=== PATIENT | male | born 1940 | race African-American/Black ===

== ENCOUNTER 2022-11-15 11:28 | Emergency (ER) | payer OTHER ==
[~2022-11-15] VITALS: Ht 175.3 cm; Wt 95.9 kg
[2022-11-15 13:23] LABS: Basophils # (auto) 0.1 10 ^3/uL (0-0.2); Eosinophils # (auto) 0 10 ^3/uL (0-0.8); Eosinophils % (auto) 0.3 % (0.0-7.0); Hematocrit 38.3 % (41.0-53.0); Hemoglobin 12.8 g/dL (13.5-17.5); Lymphocytes # (auto) 2.2 10 ^3/uL (0.4-5.4); Mean Corpuscular Hgb Conc. 33.5 g/dL (32.0-36.0); Mean Corpuscular Volume 83.4 fL (80.0-100.0); Monocytes # (auto) 0.9 10 ^3/uL (0-1.3); Neutrophils # (auto) 7.1 10 ^3/uL (1.6-8.6); Neutrophils % (auto) 68.7 % (37.0-80.0); Nucleated Red Blood Cells % 0.1 %; Red Blood Cells 4.59 10^6/uL (4.5-5.90); Red Cell Distribution Width 14.2 % (11.8-14.3); White Blood Cell 10.4 10^3/uL (4.4-10.8)
[2022-11-15 13:41] LABS: Albumin 3.2 g/dL (3.4-5.0); BUN/Creatinine Ratio 11.7; Calcium 9.4 mg/dL (8.5-10.1); Potassium 3.6 mmol/L (3.5-5.1)
[2022-11-15 13:57] LABS: Bilirubin, Total 0.6 mg/dL (0.2-1.0); Total Protein 6.8 g/dL (6.4-8.2)
[2022-11-15 17:27] LABS: Urine Bacteria FEW /hpf (None Seen); Urine Blood 2+ /uL (Negative); Urine Mucus FEW (None Seen); Urine Specific Gravity 1.028 (1.001-1.035); Urine WBC 9 /hpf (0 - 3)
[2022-11-15 20:35] VITALS: BP 157/60
== END 2022-11-15 20:38 | disposition home or self-care (01) ==
LOC: ER 11:28
DX: R10.84 Generalized abdominal pain (principal); I10 Essential (primary) hypertension
CPT/HCPCS: 36415; 74176; 80053; 81001; 83690; 84484; 85025; 93005

== ENCOUNTER 2024-09-18 03:52 | Inpatient (IN) | payer OTHER ==
[2024-09-18] VITALS (7 sets, daily range): BP systolic 153–160; BP diastolic 81–99; PULSE 60–114; RESP 17–20; TEMP 98.2–99.5; O2SAT 92–99
[~2024-09-18] VITALS: Ht 175.3 cm; Wt 102.2 kg
--- NOTE | 2024-09-18 04:12 | ED.PDOC ---
SOB-HPI HPI Comments 83-year-old Male who came to ER via EMS for shortness of breath. Patient does have history of hypertension, dyslipidemia, prostate cancer, and stage IV lung cancer. Was discharged yesterday at [facility], where he got admitted and intubated for several days. 45 minutes prior to arrival, patient was asleep when he woke up due to sudden onset shortness of breath. He was saturating 87% on room air on scene, was given breathing treatment and oxygen and it improved tonight 99%. Noted to be hypertensive at 182/98 mm Hg. Chief Complaint: Shortness of Breath Time Seen by MD: 04:11 Primary Care Provider: AMALIA Reviewed notes: Traffic Analyst Notes Information Source: Emergency Med Personnel Mode of Arrival: EMS Severity: Moderate Timing: Minutes Duration: Since onset Context: At Rest, With Light Exertion PE Risk Factors: None History of: Other (Lung cancer) Prehospital treatment: Breathing Tx, Oxygen Associated Signs and Symptoms: Wheeze, Cough If cough with SOB: Non-Productive Past Medical History PAST MEDICAL HISTORY: Cancer, GERD, High Lipids, HTN Past Medical History (Other): Lung cancer, prostate cancer Family History Family History: Reviewed,noncontributory to illness Social History Smoker: Non-Smoker Alcohol: Denies ETOH Use Drugs: Denies Drug Use Lives In: Home Constitutional: denies: chills, diaphoresis, fatigue, fever, malaise, sweats, weakness, others EENTM: denies: blurred vision, double vision, ear bleeding, ear discharge, ear drainage, ear pain, ear ringing, eye pain, eye redness, hearing loss, mouth pain, mouth swelling, nasal discharge, nose bleeding, nose congestion, nose pain, photophobia, tearing, throat pain, throat swelling, voice changes, others Respiratory: reports: SOB at rest, shortness of breath, wheezing; denies: cough, hemoptysis, orthopnea, SOB with excertion, stridor, others Cardiovascular: denies: chest pain, dizzy spells, diaphoresis, Dyspnea on exertion, edema, irregular heart beat, left arm pain, lightheadedness, palpitations, PND, syncope, others Gastrointestinal: denies: abdomen distended, abdominal pain, blood streaked bowels, constipated, diarrhea, dysphagia, difficulty swallowing, hematemesis, melena, nausea, poor appetite, poor fluid intake, rectal bleeding, rectal pain, vomiting, others Genitourinary: denies: burning, dysuria, flank pain, frequency, hematuria, incontinence, penile discharge, penile sore, pain, testicle pain, testicle swelling, urgency, others Neurological: denies: dizziness, fainting, headache, left sided numbness, left sided weakness, numbness, paresthesia, pre-existing deficit, right sided numbness, right sided weakness, seizure, speech problems, tingling, tremors, weakness, others Musculoskeletal: denies: back pain, gout, joint pain, joint swelling, muscle pain, muscle stiffness, neck pain, others Integumetry: denies: bruises, change in color, change in hair/nails, dryness, laceration, lesions, lumps, rash, wounds, others Allergic/Immunocompromised: denies: Difficulty Healing, Frequent Infections, Hives, Itching, others Hematologic/Lymphatic: denies: anemia, blood clots, easy bleeding, easy bruising, swollen glands, others Endocrine: denies: excessive hunger, excessive sweating, excessive thirst, excessive urination, flushing, intolerance to cold, intolerance to heat, un explained weight gain, unexplained weight loss, others Psychiatric: denies: anxiety, bipolar disorder, depression, hopeless, panic disorder, schizophrenia, sleepless, suicidal, others Physical Exam General Appearance: No Apparent Distress, Normal HEENT: Normal ENT Inspection, Pharynx Normal, TMs Normal Neck: Full Range of Motion, Non-Tender, Normal, Normal Inspection Respiratory: Chest Non-Tender, Lungs Clear, No Accessory Muscle Use, No Respiratory Distress, Normal Breath Sounds Cardiovascular: No Edema, No JVD, No Murmur, No Gallop, Normal Peripheral Pulses, Regular Rate/Rhythm Breast Exam: Deferred Gastrointestinal: No Organomegaly, Non Tender, No Pulsatile Mass, Normal Bowel Sounds, Soft Genitalia: Deferred Pelvic: Deferred Rectal: Deferred Extremities: No calf tenderness, Normal capillary refill, Normal inspection, Normal range of motion, Non-tender, No pedal edema Musculoskeletal : Apperance: Normal Neurologic: Alert, special events manager II-XII nml as Tested, No Motor Deficits, Normal Affect, Normal Mood, No Sensory Deficits Cerebellar Function: Normal Reflexes: Normal Skin: Dry, Normal Color, Warm Lymphatic: No Adenopathy EKG EKG : Pulse Rate (adult): 111 Comments sinus tachycardia, repolarization abnormality, prolonged QT Was a procedure done? Was a procedure done?: No Differential Dx Differential Diagnosis: Asthma, Bronchitis, CHF, COPD, Myocardial infarction, P neumonia, Respiratory Distress, Other (Lung cancer) X-Ray, Labs, Meds, VS Vital Signs Date Time Temp Pulse Resp B/P (MAP) Pulse Ox O2 Delivery O2 Flow Rate FiO2 09/18/24 04:33 26 98 Nasal Cannula* 6 44 09/18/24 04:33 111 09/18/24 03:57 98.2 110 28 182/98 (126) 96 09/18/24 03:56 111 Lab Test 09/18/24 04:29 Range/Units Blood Gas Specimen Type Arterial Blood Gas Sample Site Right radial Blood Gas Patient Temperature 37.0 Arterial Blood Date Drawn [id number] Arterial Blood pH 7.465 H 7.350-7.450 Arterial Blood Partial Pressure CO2 34.1 L 35.0-48.0 mmHg Arterial Blood Partial Pressure O2 88.3 83.0-108.0 mmHg Arterial Blood HCO3 24.0 21.0-28.0 mmol/L Arterial Blood Oxygen Saturation 97.3 94.0-98.0 % Arterial Blood Base Excess 0.7 -2.0-3.0 mmol/L Arterial Blood Oxyhemoglobin 96.0 94.0-98.0 % Arterial Blood Carboxyhemoglobin 0.7 0.5-1.5 % Arterial Blood Methemoglobin 0.6 0.0-1.5 % Jeison Test Yes Blood Gas Total Hemoglobin 12.10 L 13.5-17.5 g/dL Blood Gas Liter Flow 6.00 Blood Gas Modality Nasal cannula FiO2 % 44.0 Current Medications Medications (Trade) Dose Ordered Sig/Nando Route Start Time Stop Time Status Last Admin Methylprednisolone Sodium Succinate (Solu Medrol) 125 mg ONCE ONCE IV 09/18/24 04:15 09/18/24 04:16 DC 09/18/24 04:33 Albuterol (Ventolin Medneb) 5 mg ONCE ONCE N 09/18/24 04:15 09/18/24 04:16 DC 09/18/24 04:35 Ipratropium [place] (Atrovent Medneb) 1 mg ONCE ONCE N 09/18/24 04:15 09/18/24 04:16 DC 09/18/24 04:35 Time of 1ST Reevaluation: 04:06 Reevaluation 1ST: Unchanged Consultation: Other (I contacted [place] [facility] Conrad reviewed the case plan to a rrange transfer to [place]. Auth # [id number]) Patient Education/Counseling: Diagnosis, Treatment Family Education/Counseling: No Family Present Sepsis focused exam: focus exam completed, time: (0500) Departure 1 Departure Time of Disposition: 05:22 Impression: Primary Impression: COPD with acute exacerbation Additional Impression: Respiratory failure with hypoxia Disposition: [facility] Condition: Guarded (I contacted [place] Dr Conrad reviewed the case plan to arrange transfer to [place]. Auth # [id number]) Critical Care Note Critical Care Time?: Yes (35 min-critical care time only) Stability Stability form required: No Heart Score Heart Score: Heart Score Response (Comments) Value History Moderate Suspicious 1 EKG Repolarization Disturb 1 Age >65 2 Risk Factors >3 or Hx ASHD 2 Troponin Normal limit 0 Total 6 I personally scribed for JIMENA PAYTON MD ([email or web address]) on 09/18/24 at 04:12. Electronically submitted by Deuce Hernandez ([email or web address]). JIMENA PAYTON MD Sep 18, 2024 04:12
[2024-09-18] MEDS: methylPREDNISolone SOD SUCC 125 MG/2 ML VL IV ONE (04:33)
[2024-09-18] MEDS: ALBUTEROL SULF 2.5 MG/0.5ML(0.5%) NEB SOLN HHN ONE (04:35)
[2024-09-18] MEDS: IPRATROPIUM BROM 0.5 MG/2.5ML INH SOL HHN ONE (04:35)
[2024-09-18 04:40] LABS: Base Excess 0.7 mmol/L (-2.0-3.0)
--- NOTE | 2024-09-18 04:42 | DVH ---
CHEST RADIOGRAPH Indication: SOB Technique: Single frontal view of the chest was obtained Comparison: None IMPRESSION: The cardiomediastinal silhouette is prominent. There are small bilateral pleural effusions, right gr eater than left. Bibasilar patchy airspace opacities, right greater than left. Moderate pulmonary va scular congestion. No evidence of pneumothorax.
[2024-09-18 06:14] LABS: Basophils # (auto) 0.1 10 ^3/uL (0-0.2); Basophils % (auto) 0.7 % (0.0-2.0); Eosinophils # (auto) 0.1 10 ^3/uL (0-0.8); Eosinophils % (auto) 0.9 % (0.0-7.0); Hematocrit 36.5 % (41.0-53.0); Hemoglobin 12.1 g/dL (13.5-17.5); Lymphocytes # (auto) 1.8 10 ^3/uL (0.4-5.4); Mean Corpuscular Hemoglobin 30.7 pg (28.0-32.0); Mean Corpuscular Hgb Conc. 33.2 g/dL (32.0-36.0); Mean Corpuscular Volume 92.7 fL (80.0-100.0); Monocytes # (auto) 0.6 10 ^3/uL (0-1.3); Monocytes % (auto) 6.1 % (0.0-12.0); Neutrophils # (auto) 7.2 10 ^3/uL (1.6-8.6); Neutrophils % (auto) 74.3 % (37.0-80.0); Nucleated Red Blood Cells % 0.1 %; Platelet Count (auto) 244 10^3/uL (140-450); Red Blood Cells 3.94 10^6/uL (4.5-5.90); Red Cell Distribution Width 16.2 % (11.8-14.3); White Blood Cell 9.8 10^3/uL (4.4-10.8)
[2024-09-18 06:22] LABS: Alanine Aminotransferase 11 U/L (7-40); Alkaline Phosphatase 88 U/L (46-116); Anion Gap 10 (5-15); Aspartate Aminotransferase 30 U/L (13-40); BUN/Creatinine Ratio 10.9 (10.0-20.0); Blood Urea Nitrogen 17 mg/dL (9-23); Calcium 9.2 mg/dL (8.7-10.4); Carbon Dioxide 24 mmol/L (20-31); Chloride 113 mmol/L (98-107); Glucose 129 mg/dL (74-106); Potassium 3.3 mmol/L (3.5-5.1); Sodium 147 mmol/L (136-145)
[2024-09-18 06:23] LABS: Bilirubin, Total 0.5 mg/dL (0.2-1.0); Total Protein 5.3 g/dL (5.7-8.2)
--- NOTE | 2024-09-18 06:46 | ECG ---
[facility] Test Date: 2024-09-18 Test Time: 03:56:46 Pat Name: AVE SANCHEZ Department: ED Room: 0202T Gender: M Sales Promotion Coordinator: ED : 1940 Requested By: JIMENA PAYTON Order Number: [id number] Reading MD: Preet Hernandez Measurements Intervals [place] Rate: 111 P: 47 HI: 123 QRS: 23 QRSD: 109 T: 193 QT: 376 QTc: 511 Interpretive Statements Sinus tachycardia with irregular rate Probable anteroseptal infarct, old Nonspecific repol abnormality, lateral leads Prolonged QT interval Electronically Signed On 09-21-2024 8:20:06 PST by Preet Hernandez Please click the below link to view image of tracing.
--- NOTE | 2024-09-18 07:06 | ED.PDOC ---
SOB-HPI Chief Complaint: Shortness of Breath Time Seen by MD: 06:57 Primary Care Provider: Zachary López notes: Nurses Notes, Medications, Allergies Information Source: Patient, Relative, DrAshlie Office ([facility] physician) Mode of Arrival: EMS Severity: Severe Timing: Days Duration: Since onset Context: Spontaneous Onset History of: COPD Prehospital treatment: Beta-Agonist Tx, Breathing Tx, Oxygen Modifying Factors: Exertion Associated Signs and Symptoms: Wheeze, Cough If cough with SOB: Non-Productive Past Medical History PAST MEDICAL HISTORY: Cancer, GERD, High Lipids, HTN Past Medical History (Other): Lung cancer, prostate cancer Family History Family History: Reviewed,noncontributory to illness Social History Smoker: Non-Smoker Alcohol: Denies ETOH Use Drugs: Denies Drug Use Lives In: Home Respiratory: reports: cough, SOB at rest Physical Exam General Appearance: No Apparent Distress, Normal HEENT: Normal ENT Inspection, Pharynx Normal, TMs Normal Neck: Full Range of Motion, Non-Tender, Normal, Normal Inspection Respiratory: Chest Non-Tender, Lungs Clear, No Accessory Muscle Use, No Respiratory Distress, Normal Breath Sounds, Other (pt reports to feel bewtter but still speaking in clipped short sentences and on 6LO2 with tachycardia varying from 104-119) Cardiovascular: No Edema, No JVD, No Murmur, No Gallop, Normal Peripheral Pulses, Regular Rate/Rhythm Breast Exam: Deferred Gastrointestinal: No Organomegaly, Non Tender, No Pulsatile Mass, Normal Bowel Sounds, Soft Genitalia: Deferred Pelvic: Deferred Rectal: Deferred Extremities: No calf tenderness, Normal capillary refill, Normal inspection, Normal range of motion, Non-tender, No pedal edema Musculoskeletal : Apperance: Normal Neurologic: Alert, aviation project engineer II-XII nml as Tested, No Motor Deficits, Normal Affect, Normal Mood, No Sensory Deficits Cerebellar Function: Normal Reflexes: Normal Skin: Dry, Normal Color, Warm Lymphatic: No Adenopathy EKG EKG : Pulse Rate (adult): 111 [place]: Normal Cardiac Rhythm: ST Block: None Hypertrophy: None ST: Nonsp Was a procedure done? Was a procedure done?: No Differential Dx Differential Diagnosis: Anxiety, Asthma, Bronchitis, Cardiogenic Shock, CHF, COPD, Dysrhythmia, Hyperventilation, Myocardial infarction, Panic Attack, Pneumo nima, Pneumothorax, Pulmonary Embolism, Respiratory Distress, URI X-Ray, Labs, Meds, VS Vital Signs Date Time Temp Pulse Resp B/P (MAP) Pulse Ox O2 Delivery O2 Flow Rate FiO2 09/18/24 06:34 114 18 99 Nasal Cannula* 6 44 09/18/24 06:00 116 21 171/81 (111) 96 09/18/24 05:00 112 25 170/85 (113) 97 09/18/24 04:33 26 98 Nasal Cannula* 6 44 09/18/24 04:33 111 09/18/24 04:26 114 23 186/87 (120) 87 09/18/24 03:57 98.2 110 28 182/98 (126) 96 09/18/24 03:56 111 Lab Test 09/18/24 05:58 09/18/24 04:29 Range/Units White Blood Count 9.8 4.4-10.8 10^3/uL Red Blood Count 3.94 L 4.5-5.90 10^6/uL Hemoglobin 12.1 L 13.5-17.5 g/dL Hematocrit 36.5 L 41.0-53.0 % Mean Corpuscular Volume 92.7 80.0-100.0 fL Mean Corpuscular Hemoglobin 30.7 28.0-32.0 pg Mean Corpuscular Hemoglobin Concent 33.2 32.0-36.0 g/dL Red Cell Distribution Width 16.2 H 11.8-14.3 % Platelet Count 244 140-450 10^3/uL Mean Platelet Volume 8.6 6.9-10.8 fL Neutrophils (%) (Auto) 74.3 37.0-80.0 % Lymphocytes (%) (Auto) 18.0 10.0-50.0 % Monocytes (%) (Auto) 6.1 0.0-12.0 % Eosinophils (%) (Auto) 0.9 0.0-7.0 % Basophils (%) (Auto) 0.7 0.0-2.0 % Neutrophils # (Auto) 7.2 1.6-8.6 10 ^3/uL Lymphocytes # (Auto) 1.8 0.4-5.4 10 ^3/uL Monocytes # (Auto) 0.6 0-1.3 10 ^3/uL Eosinophils # (Auto) 0.1 0-0.8 10 ^3/uL Basophils # (Auto) 0.1 0-0.2 10 ^3/uL Nucleated Red Blood Cells 0.1 % Sodium Level 147 H 136-145 mmol/L Potassium Level 3.3 L 3.5-5.1 mmol/L Chloride Level 113 H 98-107 mmol/L Carbon Dioxide Level 24 20-31 mmol/L Anion Gap 10 5-15 Blood Urea Nitrogen 17 9-23 mg/dL Creatinine 1.56 H 0.700-1.30 mg/dL Glomerular Filtration Rate Calc 44 >90 mL/min BUN/Creatinine Ratio 10.9 10.0-20.0 Serum Glucose 129 H 74-106 mg/dL Lactic Acid Level 1.7 0.4-2.0 mmol/L Calcium Level 9.2 8.7-10.4 mg/dL Magnesium Level 2.0 1.6-2.6 mg/dL Total Bilirubin 0.5 0.2-1.0 mg/dL Aspartate Amino Transferase (AST) 30 13-40 U/L Alanine Aminotransferase (ALT) 11 7-40 U/L Alkaline Phosphatase 88 46-116 U/L Troponin I High Sensitivity Pending B-Type Natriuretic Peptide 581.60 0-100 pg/mL Total Protein 5.3 L 5.7-8.2 g/dL Albumin 3.0 L 3.2-4.8 g/dL Blood Gas Specimen Type Arterial Blood Gas Sample Site Right radial Blood Gas Patient Temperature 37.0 Arterial Blood Date Drawn [id number] Arterial Blood pH 7.465 H 7.350-7.450 Arterial Blood Partial Pressure CO2 34.1 L 35.0-48.0 mmHg Arterial Blood Partial Pressure O2 88.3 83.0-108.0 mmHg Arterial Blood HCO3 24.0 21.0-28.0 mmol/L Arterial Blood Oxygen Saturation 97.3 94.0-98.0 % Arterial Blood Base Excess 0.7 -2.0-3.0 mmol/L Arterial Blood Oxyhemoglobin 96.0 94.0-98.0 % Arterial Blood Carboxyhemoglobin 0.7 0.5-1.5 % Arterial Blood Methemoglobin 0.6 0.0-1.5 % Jeison Test Yes Blood Gas Total Hemoglobin 12.10 L 13.5-17.5 g/dL Blood Gas Liter Flow 6.00 Blood Gas Modality Nasal cannula FiO2 % 44.0 Current Medications Medications (Trade) Dose Ordered Sig/Nando Route Start Time Stop Time Status Last Admin Methylprednisolone Sodium Succinate (Solu Medrol) 125 mg ONCE ONCE IV 09/18/24 04:15 09/18/24 04:16 DC 09/18/24 04:33 Albuterol (Ventolin Medneb) 5 mg ONCE ONCE N 09/18/24 04:15 09/18/24 04:16 DC 09/18/24 04:35 Ipratropium [place] (Atrovent Medneb) 1 mg ONCE ONCE [facility] 09/18/24 04:15 09/18/24 04:16 DC 09/18/24 04:35 Time of 1ST Reevaluation: 05:22 Reevaluation 1ST: Unchanged Time of 2ND Reevaluation: 07:02 Reevaluation 2ND: Unchanged Consultation: Other ([facility] provider) Patient Education/Counseling: Diagnosis, Treatment, Prognosis Family Education/Counseling: Diagnosis, Treatment, Prognosis Additional Information [facility] caslled and is requesting for pt to be admitted here, dut to unimproved status and tachycardia Departure 1 Departure Time of Disposition: 05:22 Impression: Primary Impression: COPD with acute exacerbation Additional Impression: Respiratory failure with hypoxia Qualified Codes: J96.01 - Acute respiratory failure with hypoxia Disposition: ADMITTED INPATIENT Condition: Guarded Critical Care Note Critical Care Time?: Yes (45 min-critical care time only) Critical care comment: due to the patient's unstable condition, which may acutely deteriorate, his care required my highest level of attention and readiness to intervene. i reassessed him for response to treatment, condition stability, reviewed the test results, spoke to [facility], pt's son, medical personnel, formulated a plan and changed his status from transfer to admit. total time is 45 mins, excluding any procedures Stability Stability form required: No Heart Score Heart Score: Heart Score Response (Comments) Value History Slightly Suspicious 0 EKG Repolarization Disturb 1 Age >65 2 Risk Factors >3 or Hx ASHD 2 Troponin N/A 0 Total 5 ERNST SCHULTZ MD Sep 18, 2024 07:06
[2024-09-18] MEDS ORDERED: ACETAMINOPHEN 325 MG TAB PO PRN (10:15)
[2024-09-18] MEDS ORDERED: ONDANSETRON HCL 4 MG/2 ML VIAL IV PRN (10:15)
[2024-09-18] MEDS ORDERED: NITROGLYCERIN 0.4 MG SL TAB SL PRN (10:30)
[2024-09-18] MEDS ORDERED: MORPHINE SULFATE INJ 2 MG/ml SYRG IV PRN (10:30)
--- NOTE | 2024-09-18 10:53 | DVHHP2 ---
History of Present Illness Reason for Visit: shortness of breath History of Present Illness 83 yo with history Lung cancer and Prostate cancer follows and has treatment management with [facility] came to the ED for acute shortness of breath patient was discharged home from [facility] on 09/17/24 but patient was only home for a day and had severe trouble breathing and managing his breathing patient was evaluated in the ED for acute respiratory distress and stated for admission as per ed patient was to unstable for acute transfer to [facility] at the time planned admission continued care Pulmonary: COPD Heme/Onc: Cancer Review of Systems Constitutional: Yes: Weakness; No: Fever, Chills, Sweats, Malaise, Other Eyes: No: Pain, Vision change, Conjunctivae inflammation, Eyelid inflammation, Other, Redness ENT: No: Ear pain, Ear discharge, Nose pain, Nose discharge, Nose congestion, Mouth pain, Mouth swelling, Throat pain, Throat swelling, Other Respiratory: Cough, Shortness of breath; No: Dry, SOB with excertion, Wheezing, Hemoptysis, Pleuritic Pain, Sputum, Wheezing, Other Cardiovascular: Palpitations; No: Chest Pain, Orthopnea, Paroxysmal Noc. Dyspnea, Edema, Lt Headedness, Other Gastrointestinal: No: Nausea, Vomiting, Abdominal Pain, Diarrhea, Constipation, Melena, Hematochezia, Other Genitourinary: No Dysuria, No Frequency, No Incontinence, No Hematuria, No Retention, No Other Musculoskeletal: No: other, neck pain, shoulder pain, arm pain, back pain, hand pain, leg pain, foot pain Skin: No: Rash, Lesions, Jaundice, Bruising, Other Neurological: Weakness; No: Numbness, Incoordination, Change in speech, Confusion, Seizures, Other Allergies: Coded Allergies: NO KNOWN ALLERGIES (Unverified , 11/15/22) Medications Current Medications Medications Dose Ordered Sig/Nando Route Start Time Stop Time Status Last Admin Dose Admin Acetaminophen 650 mg Q6HP PRN PO 09/18/24 10:15 UNV Docusate Sodium 100 mg DAILY PO 09/19/24 10:00 UNV Ondansetron HCl 4 mg Q4HP PRN IV 09/18/24 10:15 UNV Carvedilol 6.25 mg BID PO 09/18/24 22:00 UNV Furosemide 40 mg BID IV 09/18/24 22:00 UNV Mirtazapine 15 mg QPM PO 09/18/24 18:00 UNV Losartan Potassium 25 mg DAILY PO 09/19/24 10:00 UNV Folic Acid 1 mg DAILY PO 09/19/24 10:00 UNV Famotidine 20 mg DAILY PO 09/19/24 10:00 UNV Methylprednisolone Sodium Succinate 40 mg BID IV 09/18/24 22:00 UNV Ceftriaxone Sodium 50 ml @ 100 mls/hr DAILY IV 09/18/24 10:30 UNV Azithromycin 500 mg DAILY PO 09/19/24 10:00 UNV Albuterol 2.5 mg Q4HWA PRN NEB 09/18/24 10:30 UNV Ipratropium [place] 0.5 mg Q4HWA PRN NEB 09/18/24 10:30 UNV Nitroglycerin 0.4 mg Q5MINP PRN SL 09/18/24 10:30 UNV Morphine Sulfate 2 mg Q30M PRN IV 09/18/24 10:30 UNV Exam Vital Signs Vital Signs Date Time Temp Pulse Resp B/P (MAP) Pulse Ox O2 Delivery O2 Flow Rate FiO2 09/18/24 08:00 99.5 108 17 177/88 (117) 98 99.5 09/18/24 08:00 Nasal Cannula* 6 44 General Appearance: Alert, Oriented X3 (early stages of dementia ) HEENT: Atraumatic, PERRLA Respiratory: Clear to auscultation (b/l wheezing ), Normal air movement Cardiovascular: Regular rate (sinus tachy ), Normal S1, Normal S2 Abdominal: Normal bowel sounds, Soft Extremities: No clubbing (2+ pitting edema ), No cyanosis Skin: No rashes, No breakdown Neuro: Normal speech Psych/Mental Status: Mood NL Labs/Xrays Labs Test 09/18/24 09:40 09/18/24 05:58 09/18/24 04:29 Range/Units Troponin I High Sensitivity 58 *H </=54 ng/L White Blood Count 9.8 4.4-10.8 10^3/uL Red Blood Count 3.94 L 4.5-5.90 10^6/uL Hemoglobin 12.1 L 13.5-17.5 g/dL Hematocrit 36.5 L 41.0-53.0 % Mean Corpuscular Volume 92.7 80.0-100.0 fL Mean Corpuscular Hemoglobin 30.7 28.0-32.0 pg Mean Corpuscular Hemoglobin Concent 33.2 32.0-36.0 g/dL Red Cell Distribution Width 16.2 H 11.8-14.3 % Platelet Count 244 140-450 10^3/uL Mean Platelet Volume 8.6 6.9-10.8 fL Neutrophils (%) (Auto) 74.3 37.0-80.0 % Lymphocytes (%) (Auto) 18.0 10.0-50.0 % Monocytes (%) (Auto) 6.1 0.0-12.0 % Eosinophils (%) (Auto) 0.9 0.0-7.0 % Basophils (%) (Auto) 0.7 0.0-2.0 % Neutrophils # (Auto) 7.2 1.6-8.6 10 ^3/uL Lymphocytes # (Auto) 1.8 0.4-5.4 10 ^3/uL Monocytes # (Auto) 0.6 0-1.3 10 ^3/uL Eosinophils # (Auto) 0.1 0-0.8 10 ^3/uL Basophils # (Auto) 0.1 0-0.2 10 ^3/uL Nucleated Red Blood Cells 0.1 % Sodium Level 147 H 136-145 mmol/L Potassium Level 3.3 L 3.5-5.1 mmol/L Chloride Level 113 H 98-107 mmol/L Carbon Dioxide Level 24 20-31 mmol/L Anion Gap 10 5-15 Blood Urea Nitrogen 17 9-23 mg/dL Creatinine 1.56 H 0.700-1.30 mg/dL Glomerular Filtration Rate Calc 44 >90 mL/min BUN/Creatinine Ratio 10.9 10.0-20.0 Serum Glucose 129 H 74-106 mg/dL Lactic Acid Level 1.7 0.4-2.0 mmol/L Calcium Level 9.2 8.7-10.4 mg/dL Magnesium Level 2.0 1.6-2.6 mg/dL Total Bilirubin 0.5 0.2-1.0 mg/dL Aspartate Amino Transferase (AST) 30 13-40 U/L Alanine Aminotransferase (ALT) 11 7-40 U/L Alkaline Phosphatase 88 46-116 U/L B-Type Natriuretic Peptide 581.60 0-100 pg/mL Total Protein 5.3 L 5.7-8.2 g/dL Albumin 3.0 L 3.2-4.8 g/dL Blood Gas Specimen Type Arterial Blood Gas Sample Site Right radial Blood Gas Patient Temperature 37.0 Arterial Blood Date Drawn [id number] Arterial Blood pH 7.465 H 7.350-7.450 Arterial Blood Partial Pressure CO2 34.1 L 35.0-48.0 mmHg Arterial Blood Partial Pressure O2 88.3 83.0-108.0 mmHg Arterial Blood HCO3 24.0 21.0-28.0 mmol/L Arterial Blood Oxygen Saturation 97.3 94.0-98.0 % Arterial Blood Base Excess 0.7 -2.0-3.0 mmol/L Arterial Blood Oxyhemoglobin 96.0 94.0-98.0 % Arterial Blood Carboxyhemoglobin 0.7 0.5-1.5 % Arterial Blood Methemoglobin 0.6 0.0-1.5 % Jeison Test Yes Blood Gas Total Hemoglobin 12.10 L 13.5-17.5 g/dL Blood Gas Liter Flow 6.00 Blood Gas Modality Nasal cannula FiO2 % 44.0 Assessment/Plan Assessment/Plan Admit Tele Acute on Chronic COPD Acute Respiratory Distress with Hypoxemia PRN breathing treatments IV steroids IV diuretics IV abx Rocephin PO azithromycin Suspected Acute on Chronic CHF C/W home medications and medications adjusted from [facility] History Lung cancer History Prostate Cancer Plan discussed with: Patient, Son My Orders Orders - KODI BRADY MD Procedure Category Date Status Time Admit ADMIT 09/18/24 Transmitted 10:08 Cardiac DIET 09/18/24 Transmitted Diet-2gna,Lofat,Lochol Lunch Acetaminophen Tablet PHA 09/18/24 Logged (Tylenol Tablet) 10:15 Docusate Sodium PHA 09/19/24 Logged Capsule (Colace 10:00 Complete Blood Count LAB 09/19/24 Verified 04:00 Basic Metabolic Panel LAB 09/19/24 Verified 04:00 Ondansetron Hcl PHA 09/18/24 Logged (Zofran) 10:15 Electrocardigram EKG 09/18/24 Logged 10:08 Troponin-I Hs LAB 09/18/24 Logged 10:08 Cardiac [facility] 09/18/24 In Process Rehabilitation - Outpa Screw Machine Adjuster Automatic For [facility] 09/18/24 In Process 24 Hours 10:08 Oxygen By Nasal RT 09/18/24 Transmitted Cannula 10:08 Notify Of Changes [facility] 09/18/24 In Process From Base 10:08 Rhythm Strips Once [facility] [place] 09/18/24 In Process Every Shift 10:08 Carvedilol Tablet PHA 09/18/24 Logged (Coreg Tablet) 22:00 Furosemide Injection PHA 09/18/24 Logged (Lasix Injection) 22:00 Mirtazapine Tablet PHA 09/18/24 Logged (Remeron Tablet) 18:00 Losartan Tablet PHA 09/19/24 Logged (Cozaar Tablet) 10:00 Folic Acid Tablet PHA 09/19/24 Logged 10:00 Famotidine Tablet PHA 09/19/24 Logged (Pepcid Tablet) 10:00 Methylprednisolone PHA 09/18/24 Logged Sod Succ (Solu Medrol 22:00 Ceftriaxone 1gm/50ml PHA 09/18/24 Logged D5w (Rocephin) 10:30 Azithromycin Tablet PHA 09/19/24 Logged (Zithromax Tablet) 10:00 Albuterol Medneb PHA 09/18/24 Logged (Ventolin Medneb) 10:30 Ipratropium Medneb PHA 09/18/24 Logged (Atrovent Medneb) 10:30 Med Neb Initial RT 09/18/24 Logged Treatment 10:19 Admit ADMIT 09/18/24 Transmitted 10:19 Code Status CODE 09/18/24 Transmitted 10:19 Electrocardigram EKG 09/18/24 Logged 10:19 Troponin-I Hs LAB 09/18/24 Logged 10:19 Cardiac [facility] [place] 09/18/24 In Process Rehabilitation - Outpa Comprehensive LAB 09/20/24 Verified Metabolic Panel 04:00 Stat Ekg For Chest [facility] [place] 09/18/24 In Process Pain 10:19 Notify Of Changes [facility] [place] 09/18/24 In Process From Base 10:19 Screw Machine Adjuster Automatic For [facility] [place] 09/18/24 In Process 24 Hours 10:19 Oxygen By Nasal RT 09/18/24 Transmitted Cannula 10:19 Nitroglycerin PHA 09/18/24 Logged Sublingual (Ntrostat 10:30 Morphine Sulfate PHA 09/18/24 Logged Injection 10:30 Electrocardigram EKG 09/18/24 Logged 13:19 Troponin-I Hs LAB 09/18/24 Logged 13:19 Problem List: (1) Acute abdominal pain (2) COPD with acute exacerbation (3) Respiratory failure with hypoxia Date of Service: Sep 18, 2024 Billing Provider: KODI BRADY MD Common Visit Codes: [id number] INP/OBS CARE (HIGH) KODI BRADY MD Sep 18, 2024 10:53
[2024-09-18] MEDS: cefTRIAXone 1GM/50ML D5W 50 ML IV SCH (11:13)
[2024-09-18] MEDS: FUROSEMIDE 40 MG/4 ML VIAL IV SCH (11:13)
[2024-09-18] MEDS: cefTRIAXone 1GM/50ML D5W 50 ML IV ONE (13:40)
[2024-09-18] MEDS: FUROSEMIDE 40 MG/4 ML VIAL ONE (13:40)
[2024-09-18] MEDS ORDERED: OMEP20TA PO (18:14)
[2024-09-18] MEDS ORDERED: PRE5T PO (18:14)
[2024-09-18] MEDS ORDERED: ACET500T58 PO (18:14)
[2024-09-18] MEDS ORDERED: MIRT-93 PO (18:14)
[2024-09-18] MEDS ORDERED: FOLI-119 PO (18:14)
[2024-09-18] MEDS ORDERED: ABIR250T PO (18:14)
[2024-09-18] MEDS ORDERED: POTA-220 PO (18:14)
[2024-09-18] MEDS ORDERED: FURO20TA3 PO (18:14)
[2024-09-18] MEDS ORDERED: ATOR10TA52 PO (18:14)
[2024-09-18] MEDS ORDERED: LOSA-534 PO (18:14)
[2024-09-18] MEDS: MIRTAZAPINE 30 MG TAB PO SCH (18:46)
[2024-09-18] MEDS: CARVEDILOL 3.125 MG TAB PO SCH (21:00)
[2024-09-18] MEDS: methylPREDNISolone SOD SUCC 40 MG/ML VL IV SCH (21:01)
[2024-09-19] VITALS (14 sets, daily range): BP systolic 144–159; BP diastolic 73–85; PULSE 85–154; RESP 18–20; TEMP 97.5–98.8; O2SAT 96–100
[2024-09-19 05:39] LABS: Basophils # (auto) 0 10 ^3/uL (0-0.2); Basophils % (auto) 0.3 % (0.0-2.0); Eosinophils # (auto) 0 10 ^3/uL (0-0.8); Eosinophils % (auto) 0.1 % (0.0-7.0); Hematocrit 33.9 % (41.0-53.0); Hemoglobin 10.8 g/dL (13.5-17.5); Lymphocytes # (auto) 0.8 10 ^3/uL (0.4-5.4); Lymphocytes % (auto) 10.9 % (10.0-50.0); Mean Corpuscular Hemoglobin 29.9 pg (28.0-32.0); Mean Corpuscular Volume 93.6 fL (80.0-100.0); Monocytes # (auto) 0.3 10 ^3/uL (0-1.3); Monocytes % (auto) 4.1 % (0.0-12.0); Neutrophils # (auto) 6.3 10 ^3/uL (1.6-8.6); Neutrophils % (auto) 84.6 % (37.0-80.0); Nucleated Red Blood Cells % 0.3 %; Platelet Count (auto) 290 10^3/uL (140-450); Red Blood Cells 3.62 10^6/uL (4.5-5.90); Red Cell Distribution Width 16.3 % (11.8-14.3); White Blood Cell 7.5 10^3/uL (4.4-10.8)
[2024-09-19 05:51] LABS: Anion Gap 8 (5-15); Carbon Dioxide 26 mmol/L (20-31); Chloride 110 mmol/L (98-107); Sodium 144 mmol/L (136-145)
[2024-09-19 05:52] LABS: Calcium 9.1 mg/dL (8.7-10.4)
[2024-09-19 05:57] LABS: BUN/Creatinine Ratio 12.9 (10.0-20.0); Blood Urea Nitrogen 22 mg/dL (9-23); Glucose 161 mg/dL (74-106)
[2024-09-19] MEDS: FAMOTIDINE 20 MG TAB PO SCH (09:06)
[2024-09-19] MEDS: FOLIC ACID 1 MG TAB PO SCH (09:06)
[2024-09-19] MEDS: LOSARTAN POTASSIUM 25 MG TAB PO SCH (09:06)
[2024-09-19] MEDS: DOCUSATE SOD 100 MG CAP PO SCH (09:07)
[2024-09-19] MEDS ORDERED: AZITHROMYCIN 250 MG TAB PO SCH (10:00)
--- NOTE | 2024-09-19 12:45 | DVHPN2 ---
Subjective The patient is seen and examined at bedside. The patient complained of shortness for breath. Reviewed: Care Plan, H&P, Labs, Medications, Previous Orders, Radiology Changes from previous H/P or p: No Changes Eyes: No Pain, No Vision change, No Conjunctivae inflammation, No Eyelid inflammation, No Other, No Redness ENT: No Ear pain, No Ear discharge, No Nose pain, No Nose discharge, No Nose congestion, No Mouth pain, No Mouth swelling, No Throat pain, No Throat swelling, No Other Cardiovascular: No Chest Pain; Palpitations; No Orthopnea, No Paroxysmal Noc. Dyspnea, No Edema, No Lt Headedness, No Other Respiratory: Cough; No Dry; Shortness of breath; No SOB with excertion, No Wheezing, No Hemoptysis, No Pleuritic Pain, No Sputum, No Other Gastrointestinal: No Nausea, No Vomiting, No Abdominal Pain, No Diarrhea, No Constipation, No Melena, No Hematochezia, No Other Genitourinary: No Dysuria, No Frequency, No Incontinence, No Hematuria, No Retention, No Other Musculoskeletal: No other, No neck pain, No shoulder pain, No arm pain, No back pain, No hand pain, No leg pain, No foot pain Skin: No Rash, No Lesions, No Jaundice, No Bruising, No Other Objective Vitals Vital Signs Date Time Temp Pulse Resp B/P (MAP) Pulse Ox O2 Delivery O2 Flow Rate FiO2 09/19/24 11:00 99 Nasal Cannula 3.0 09/19/24 11:00 32 09/19/24 09:07 107 159/78 09/19/24 09:00 98.1 20 98.1 Intake/Output Intake and Output 09/19/24 07:00 Intake Total 850 ml Balance 850 ml Intake Oral 800 ml IV Total 50 ml # Voids 4 # Bowel Movements 1 General Appearance: Alert, Cooperative, No acute distress HEENT: Atraumatic, PERRLA, EOMI, Mucous membr. moist/pink Neck: Supple Lungs: Clear to auscultation, Normal air movement Cardiovascular: Regular rate, Normal S1, Normal S2, No murmurs, Gallops, Rubs Abdomen: Normal bowel sounds, Soft, No tenderness Neuro: Cranial nerves 3-12 NL Psych/Mental Status: Mental status NL Medications Current Medications Medications Dose Ordered Sig/Nando Route Start Time Stop Time Status Last Admin Dose Admin Acetaminophen 650 mg Q6HP PRN PO 09/18/24 10:15 Docusate Sodium 100 mg DAILY PO 09/19/24 10:00 09/19/24 09:07 100 MG Ondansetron HCl 4 mg Q4HP PRN IV 09/18/24 10:15 Carvedilol 6.25 mg BID PO 09/18/24 22:00 09/19/24 09:07 6.25 MG Furosemide 40 mg BIDD IV 09/18/24 11:00 09/19/24 06:02 40 MG Mirtazapine 15 mg QPM PO 09/18/24 18:00 09/18/24 18:46 15 MG Losartan Potassium 25 mg DAILY PO 09/19/24 10:00 09/19/24 09:06 25 MG Folic Acid 1 mg DAILY PO 09/19/24 10:00 09/19/24 09:06 1 MG Famotidine 20 mg DAILY PO 09/19/24 10:00 09/19/24 09:06 20 MG Methylprednisolone Sodium Succinate 40 mg BID IV 09/18/24 22:00 09/19/24 09:05 40 MG Ceftriaxone Sodium 50 ml @ 100 mls/hr DAILY IV 09/18/24 10:30 09/19/24 09:05 100 MLS/HR Azithromycin 500 mg DAILY PO 09/19/24 10:00 Hold Albuterol 2.5 mg Q4HWA PRN NEB 09/18/24 10:30 Ipratropium [place] 0.5 mg Q4HWA PRN NEB 09/18/24 10:30 Nitroglycerin 0.4 mg Q5MINP PRN SL 09/18/24 10:30 Morphine Sulfate 2 mg Q30M PRN IV 09/18/24 10:30 Laboratory Results Laboratory Tests 09/19/24 05:00 Chemistry Test 09/19/24 05:00 Calcium Level 9.1 mg/dL (8.7-10.4) Microbiology Microbiology Date/Time Source Procedure Growth Status 09/18/24 09:40 Blood Blood Culture - Preliminary NO GROWTH AFTER 24 HOURS OF INCUBATION. Resulted Labs and/or images reviewed: Labs reviewed by me Assessment/Plan Assessment/Plan Abdominal pain Paroxysmal atrial fibrillation COPD with exacerbation Non ST elevation [place] type 2 Hypertension Hyperlipidemia Anemia of chronic disease Prostate cancer Stage IV lung cancer History of tobacco abuse Acute kidney injury Plan: Continuing current management. Continuing with IV antibiotic. Hair Or Beauty Salon Assistant's input appreciated. Waiting for 2D echo report. Continuing with Metoprolol and amiodarone for rate control of atrial fibrillation. Continuing with nebulizer. Continuing with hypertensive medication. Continuing with statin. Footwear Sales Associate and autos disassembler input appreciated. We will monitor kidney function Plan discussed with: Patient Date of Service: Sep 19, 2024 Billing Provider: GIL TAVERA MD Common Visit Codes: [id number] INP/OBS CARE(HIGH) GIL TAVERA MD Sep 19, 2024 12:45
[2024-09-19] MEDS: METOPROLOL TARTRATE 1MG/1ML-5ML VIAL IV ONE ×2 (17:24→19:23)
--- NOTE | 2024-09-19 18:00 | DVHINCON2 ---
Date Seen: Sep 19, 2024 Referring Physician MD Shelby Reason for Consultation AFib RVR History of Present Illness This is a 83-year-old male patient who presents to the emergency room with chief complaint of worsening shortness of breath. The patient was recently discharged from [facility] on 09/17/2024 for unknown respiratory reasons (patient is a very poor historian). During this admission, the patient went into atrial fibrillation with rapid ventricular response. Cardiology is now being consulted to follow this patient. Initial twelve lead electrocardiogram reveals sinus tachycardia with PACs. At the time of assessment, the patient is in atrial fibrillation with heart rate in the 110's. The patient denies any palpitations or chest pain at time of assessment. Initial BNP level of 581.60pg/mL. Initial troponin level of 63ng/L. Significant past medical history includes paroxysmal atrial fibrillation (not on NOAC therapy), hypertension, hyperlipidemia, anemia, prostate cancer, stage IV lung cancer, and obesity. The patient is currently un dergoing chemotherapy for cancer. The patient states that he follows up with a extraction machine operator within the [facility] network for management of his atrial fibrillation. Past Medical History Past medical history reviewed. No other significant than mentioned above. Past Surgical History Denies Family History: Patient reports no known family medical history. Family History Family history reviewed. Social History Patient has a 30 pack-year history, quit smoking approximately 40 years ago Patient denies any alcohol use Patient denies any drug use Allergies: Coded Allergies: NO KNOWN ALLERGIES (Unverified , 11/15/22) Home Meds Reported Medications Prednisone (Prednisone) 5 Mg Tab, 5 MG PO DAILY, TAB 09/18/24 Omeprazole (Gnp Omeprazole) 20 Mg Tab, 1 TAB PO DAILY, #90 TAB 1 Refill 09/18/24 Folic Acid (Folic Acid) 1 Mg Tab, 400 MCG PO DAILY for 30 Days, MG 09/18/24 Atorvastatin Calcium (ATORVASTATIN CALCIUM) 10 Mg Tab, 1 TAB PO EOD, #30 TAB 5 Refills 09/18/24 Acetaminophen (Acetaminophen) 500 Mg Tab, 500 MG PO, TAB 09/18/24 Abiraterone Acetate (ZYTIGA) 250 Mg Tab, 250 MG PO, TAB 09/18/24 Losartan Potassium (Losartan Potassium) 50 Mg Tab, 50 MG PO DAILY for 30 Days, MG 09/18/24 Potassium Chloride (Klor-Con M20) 20 Meq Tab, 20 MEQ PO, TAB 09/18/24 Mirtazapine (Remeron) 15 Mg Tab, 1 TAB PO QPM, #30 TAB 1 Refill 09/18/24 Furosemide (Furosemide) 20 Mg Tab, 1 TAB PO DAILY, #90 TAB 1 Refill 09/18/24 Home Meds Home medications reviewed. Current Medications Current Medications Medications (Trade) Dose Ordered Sig/Nando Route PRN Reason Start Time Stop Time Status Last Admin Docusate Sodium (Colace Capsule) 100 mg DAILY PO 09/19/24 10:00 09/19/24 09:07 Carvedilol (Coreg Tablet) 6.25 mg BID PO 09/18/24 22:00 09/19/24 09:07 Losartan Potassium (Cozaar Tablet) 25 mg DAILY PO 09/19/24 10:00 09/19/24 09:06 Folic Acid 1 mg DAILY PO 09/19/24 10:00 09/19/24 09:06 Famotidine (Pepcid Tablet) 20 mg DAILY PO 09/19/24 10:00 09/19/24 09:06 Methylprednisolone Sodium Succinate (Solu Medrol) 40 mg BID IV 09/18/24 22:00 09/19/24 09:05 Azithromycin (Zithromax Tablet) 500 mg DAILY PO 09/19/24 10:00 Hold Furosemide (Lasix Tablet) 20 mg DAILY PO 09/20/24 10:00 Future hold Potassium Chloride (Klor-Con Tablet) 20 meq DAILY PO 09/20/24 10:00 Atorvastatin Calcium (Lipitor) 10 mg EOD PO 09/21/24 10:00 Patient Own Medication 400 mcg DAILY PO 09/20/24 10:00 Mirtazapine (Remeron Tablet) 15 mg QPM PO 09/19/24 18:00 Metoprolol Tartrate (Lopressor) 2.5 mg Q6HPRN PRN IV HEART RATE GREATER THAN 140 09/19/24 16:30 Review of Systems Constitutional: No symptom reported Ears, Nose, & Throat: No symptom reported Eyes: No symptom reported Neurological: No symptoms reported Pulmonary/Respiratory: Shortness of breath Cardiovascular: No symptom reported Gastrointestinal: No symptom reported Genitourinary: No symptom reported Musculoskeletal: No symptom reported Skin: No symptom reported Psychiatric: No symptom reported Endocrine: No symptom reported Hematologic/Lymphatic: No symptom reported Vital Signs Vital Signs Date Time Temp Pulse Resp B/P (MAP) Pulse Ox O2 Delivery O2 Flow Rate FiO2 09/19/24 17:24 160 144/73 09/19/24 17:00 98.0 20 99 98.0 09/19/24 11:00 Nasal Cannula 3.0 09/19/24 11:00 32 Physical Exam General Appearance: Cooperative. Morbidly obese Pulmonary/Respiratory: Coarse throughout Cardiovascular/Chest: Irregular rate and rhythm. Peripheral Pulses: 2+ Radial (R). 2+ Radial (L). 1+ Pedal (R). 1+ Pedal (L) Abdominal Exam: Normal bowel sounds Ankle Exam: 3+ pitting edema Lower extremities: 3+ pitting edema Neuro/Mental Status: A/OX4, coherent. Thoughts/Psych: Normal thought pattern. Appropriate mood and affect. Good judgment and insight. Appearance: No acute distress. Skin Exam: Normal inspection. Normal color. Warm and dry. Labs/Diagnostic Data Labs Test 09/19/24 05:00 09/18/24 11:39 09/18/24 05:58 09/18/24 04:29 Range/Units White Blood Count 7.5 4.4-10.8 10^3/uL Red Blood Count 3.62 L 4.5-5.90 10^6/uL Hemoglobin 10.8 L 13.5-17.5 g/dL Hematocrit 33.9 L 41.0-53.0 % Mean Corpuscular Volume 93.6 80.0-100.0 fL Mean Corpuscular Hemoglobin 29.9 28.0-32.0 pg Mean Corpuscular Hemoglobin Concent 32.0 32.0-36.0 g/dL Red Cell Distribution Width 16.3 H 11.8-14.3 % Platelet Count 290 140-450 10^3/uL Mean Platelet Volume 9.0 6.9-10.8 fL Neutrophils (%) (Auto) 84.6 H 37.0-80.0 % Lymphocytes (%) (Auto) 10.9 10.0-50.0 % Monocytes (%) (Auto) 4.1 0.0-12.0 % Eosinophils (%) (Auto) 0.1 0.0-7.0 % Basophils (%) (Auto) 0.3 0.0-2.0 % Neutrophils # (Auto) 6.3 1.6-8.6 10 ^3/uL Lymphocytes # (Auto) 0.8 0.4-5.4 10 ^3/uL Monocytes # (Auto) 0.3 0-1.3 10 ^3/uL Eosinophils # (Auto) 0 0-0.8 10 ^3/uL Basophils # (Auto) 0 0-0.2 10 ^3/uL Nucleated Red Blood Cells 0.3 % Sodium Level 144 136-145 mmol/L Potassium Level 4.0 3.5-5.1 mmol/L Chloride Level 110 H 98-107 mmol/L Carbon Dioxide Level 26 20-31 mmol/L Anion Gap 8 5-15 Blood Urea Nitrogen 22 9-23 mg/dL Creatinine 1.70 H 0.700-1.30 mg/dL Glomerular Filtration Rate Calc 39 >90 mL/min BUN/Creatinine Ratio 12.9 10.0-20.0 Serum Glucose 161 H 74-106 mg/dL Calcium Level 9.1 8.7-10.4 mg/dL Troponin I High Sensitivity 56 *H </=54 ng/L Lactic Acid Level 1.7 0.4-2.0 mmol/L Magnesium Level 2.0 1.6-2.6 mg/dL Total Bilirubin 0.5 0.2-1.0 mg/dL Aspartate Amino Transferase (AST) 30 13-40 U/L Alanine Aminotransferase (ALT) 11 7-40 U/L Alkaline Phosphatase 88 46-116 U/L B-Type Natriuretic Peptide 581.60 0-100 pg/mL Total Protein 5.3 L 5.7-8.2 g/dL Albumin 3.0 L 3.2-4.8 g/dL Blood Gas Specimen Type Arterial Blood Gas Sample Site Right radial Blood Gas Patient Temperature 37.0 Arterial Blood Date Drawn [id number] Arterial Blood pH 7.465 H 7.350-7.450 Arterial Blood Partial Pressure CO2 34.1 L 35.0-48.0 mmHg Arterial Blood Partial Pressure O2 88.3 83.0-108.0 mmHg Arterial Blood HCO3 24.0 21.0-28.0 mmol/L Arterial Blood Oxygen Saturation 97.3 94.0-98.0 % Arterial Blood Base Excess 0.7 -2.0-3.0 mmol/L Arterial Blood Oxyhemoglobin 96.0 94.0-98.0 % Arterial Blood Carboxyhemoglobin 0.7 0.5-1.5 % Arterial Blood Methemoglobin 0.6 0.0-1.5 % Jeison Test Yes Blood Gas Total Hemoglobin 12.10 L 13.5-17.5 g/dL Blood Gas Liter Flow 6.00 Blood Gas Modality Nasal cannula FiO2 % 44.0 Microbiology Date/Time Source Procedure Growth Status 09/18/24 18:56 Nose MRSA Screen - Final Complete 09/18/24 09:40 Blood Blood Culture - Preliminary NO GROWTH AFTER 24 HOURS OF INCUBATION. Resulted Assessment Paroxysmal atrial fibrillation, stage 3A (off NOAC therapy) Bilateral pleural effusions NSTEMI type II secondary to above Rule out structural heart disease Hypertension Hyperlipidemia Acute on chronic anemia Prostate cancer COPD Stage IV lung cancer History of tobacco use Morbid obesity Plan/Recommendation We will continue with the following plan/recommendations (Dr. Kim): * Echocardiogram to evaluate cardiac function * Diuresis as tolerated * ?[id number] VASc score:3 points, HAS-BLED: 1 point * Beta-denisse for rate control * Consider NOAC therapy with stable hemoglobin and negative stool occult blood. SCD's in the meantime * Hold off on antiarrhythmic agent, amiodarone given pulmonary disease * Monitor and replete electrolytes as needed, keep K>4 and Mag>2 * Check TSH Patient seen and examined at bedside with . Patient extensively educated regarding initiation of NOAC therapy. Patient reports he has needed blood transfusions within this last year. Patient educated on high risk of stroke if off of NOAC therapy. Patient verbalized understanding. We will recommend to consider NOAC therapy if hemoglobin remained stable during this admission and stool occult blood comes back negative. Thank you for allowing us to care for this patient. Please call with any questions or concerns. Critical care time spent:41 minutes This medical document was created using an electronic medical record system with voice recognition software and computerized dictation system. Although this document has been carefully reviewed, there might still be some phonetic and typographical errors. Occasional wrong-word or ``sound-alike substitutions may have occurred due to the inherent limitations of voice recognition software. These areas are purely typographical due to imperfections of the software programs and do not reflect any compromise in the patient's medical care. Please read the chart carefully and recognize, using context, where these substitutions have occurred. Plan discussed with: Patient, Other (Bedside RN) Date of Service: Sep 19, 2024 Billing Provider: MEENAKSHI GEIGER Cardiology Common Codes: [id number] INP/OBS CARE (High) Cardiology Consultation Codes: [id number] CONSULT <45MIN MEENAKSHI GEIGER Sep 19, 2024 18:00
[2024-09-19] MEDS: MIRTAZAPINE 30 MG TAB PO SCH (18:52)
[2024-09-19] MEDS ORDERED: hydrALAZINE HCL 20 MG/ML VL IV PRN (19:15)
[2024-09-19] MEDS: ALBUTEROL SULF 2.5 MG/0.5ML(0.5%) NEB SOLN NEB PRN (21:18)
[2024-09-19] MEDS: IPRATROPIUM BROM 0.5 MG/2.5ML INH SOL NEB PRN (21:18)
--- NOTE | 2024-09-19 21:31 | DVHINCON2 ---
Date Seen: Sep 19, 2024 Referring Physician MD Shelby Reason for Consultation AFib RVR History of Present Illness This is a 83-year-old male with a PMH of paroxysmal atrial fibrillation (not on NOAC therapy), hypertension, hyperlipidemia, anemia, obesity, prostate cancer, stage IV lung cancer currently undergoing chemotherapy who presented to the ED with complaints of worsening shortness of breath. The patient was recently discharged from [facility] on 09/17/2024 for unknown respiratory reasons (patient is a very poor historian). During this admission, the patient went into atrial fibrillation with rapid ventricular response. Cardiology is now being consulted to follow this patient. Initial twelve lead electrocardiogram reveals sinus tachycardia with PACs. At the time of assessment, the patient is in atrial fibrillation with heart rate in the 110's. The patient denies any palpitations or chest pain at time of assessment Initial BNP level of 581.60pg/mL. Initial troponin level of 63ng/L. The patient states that he follows up with a production operations manager within the [facility] network for management of his atrial fibrillation. Family History: Patient reports no known family medical history. Allergies: Coded Allergies: NO KNOWN ALLERGIES (Unverified , 11/15/22) Home Meds Reported Medications Prednisone (Prednisone) 5 Mg Tab, 5 MG PO DAILY, TAB 09/18/24 Omeprazole (Gnp Omeprazole) 20 Mg Tab, 1 TAB PO DAILY, #90 TAB 1 Refill 09/18/24 Folic Acid (Folic Acid) 1 Mg Tab, 400 MCG PO DAILY for 30 Days, MG 09/18/24 Atorvastatin Calcium (ATORVASTATIN CALCIUM) 10 Mg Tab, 1 TAB PO EOD, #30 TAB 5 Refills 09/18/24 Acetaminophen (Acetaminophen) 500 Mg Tab, 500 MG PO, TAB 09/18/24 Abiraterone Acetate (ZYTIGA) 250 Mg Tab, 250 MG PO, TAB 09/18/24 Losartan Potassium (Losartan Potassium) 50 Mg Tab, 50 MG PO DAILY for 30 Days, MG 09/18/24 Potassium Chloride (Klor-Con M20) 20 Meq Tab, 20 MEQ PO, TAB 09/18/24 Mirtazapine (Remeron) 15 Mg Tab, 1 TAB PO QPM, #30 TAB 1 Refill 09/18/24 Furosemide (Furosemide) 20 Mg Tab, 1 TAB PO DAILY, #90 TAB 1 Refill 09/18/24 Current Medications Current Medications Medications (Trade) Dose Ordered Sig/Nando Route PRN Reason Start Time Stop Time Status Last Admin Docusate Sodium (Colace Capsule) 100 mg DAILY PO 09/19/24 10:00 09/19/24 09:07 Carvedilol (Coreg Tablet) 6.25 mg BID PO 09/18/24 22:00 09/19/24 09:07 Losartan Potassium (Cozaar Tablet) 25 mg DAILY PO 09/19/24 10:00 09/19/24 09:06 Folic Acid 1 mg DAILY PO 09/19/24 10:00 09/19/24 09:06 Famotidine (Pepcid Tablet) 20 mg DAILY PO 09/19/24 10:00 09/19/24 09:06 Methylprednisolone Sodium Succinate (Solu Medrol) 40 mg BID IV 09/18/24 22:00 09/19/24 09:05 Azithromycin (Zithromax Tablet) 500 mg DAILY PO 09/19/24 10:00 Hold Furosemide (Lasix Tablet) 20 mg DAILY PO 09/20/24 10:00 09/19/24 18:22 DC Potassium Chloride (Klor-Con Tablet) 20 meq DAILY PO 09/20/24 10:00 Atorvastatin Calcium (Lipitor) 10 mg EOD PO 09/21/24 10:00 Patient Own Medication 400 mcg DAILY PO 09/20/24 10:00 Mirtazapine (Remeron Tablet) 15 mg QPM PO 09/19/24 18:00 09/19/24 18:52 Metoprolol Tartrate (Lopressor) 2.5 mg Q6HPRN PRN IV HEART RATE GREATER THAN 140 09/19/24 16:30 Metoprolol Succinate (Toprol Xl) 25 mg DAILY PO 09/20/24 10:00 09/19/24 18:22 DC Furosemide (Lasix Injection) 40 mg BIDD IV 09/20/24 06:00 Hydralazine HCl (Apresoline Injection) 10 mg Q6HP PRN IV SBP>150 09/19/24 19:15 Review of Systems Constitutional: No symptom reported Ears, Nose, & Throat: No symptom reported Eyes: No symptom reported Neurological: No symptoms reported Pulmonary/Respiratory: Shortness of breath Cardiovascular: No symptom reported Gastrointestinal: No symptom reported Genitourinary: No symptom reported Musculoskeletal: No symptom reported Skin: No symptom reported Psychiatric: No symptom reported Endocrine: No symptom reported Hematologic/Lymphatic: No symptom reported Vital Signs Vital Signs Date Time Temp Pulse Resp B/P (MAP) Pulse Ox O2 Delivery O2 Flow Rate FiO2 09/19/24 18:00 99 Nasal Cannula* 3 32 09/19/24 17:24 160 144/73 09/19/24 17:00 98.0 20 98.0 Physical Exam GENERAL: Awake, alert, oriented. Morbidly obese LUNGS: Coarse breath sounds. CARDIOVASCULAR: Irregular rate and rhythm. ABDOMEN: Soft. EXT: 3+ pitting edema. Labs/Diagnostic Data Labs Test 09/19/24 05:00 09/18/24 11:39 09/18/24 05:58 09/18/24 04:29 Range/Units White Blood Count 7.5 4.4-10.8 10^3/uL Red Blood Count 3.62 L 4.5-5.90 10^6/uL Hemoglobin 10.8 L 13.5-17.5 g/dL Hematocrit 33.9 L 41.0-53.0 % Mean Corpuscular Volume 93.6 80.0-100.0 fL Mean Corpuscular Hemoglobin 29.9 28.0-32.0 pg Mean Corpuscular Hemoglobin Concent 32.0 32.0-36.0 g/dL Red Cell Distribution Width 16.3 H 11.8-14.3 % Platelet Count 290 140-450 10^3/uL Mean Platelet Volume 9.0 6.9-10.8 fL Neutrophils (%) (Auto) 84.6 H 37.0-80.0 % Lymphocytes (%) (Auto) 10.9 10.0-50.0 % Monocytes (%) (Auto) 4.1 0.0-12.0 % Eosinophils (%) (Auto) 0.1 0.0-7.0 % Basophils (%) (Auto) 0.3 0.0-2.0 % Neutrophils # (Auto) 6.3 1.6-8.6 10 ^3/uL Lymphocytes # (Auto) 0.8 0.4-5.4 10 ^3/uL Monocytes # (Auto) 0.3 0-1.3 10 ^3/uL Eosinophils # (Auto) 0 0-0.8 10 ^3/uL Basophils # (Auto) 0 0-0.2 10 ^3/uL Nucleated Red Blood Cells 0.3 % Sodium Level 144 136-145 mmol/L Potassium Level 4.0 3.5-5.1 mmol/L Chloride Level 110 H 98-107 mmol/L Carbon Dioxide Level 26 20-31 mmol/L Anion Gap 8 5-15 Blood Urea Nitrogen 22 9-23 mg/dL Creatinine 1.70 H 0.700-1.30 mg/dL Glomerular Filtration Rate Calc 39 >90 mL/min BUN/Creatinine Ratio 12.9 10.0-20.0 Serum Glucose 161 H 74-106 mg/dL Calcium Level 9.1 8.7-10.4 mg/dL Troponin I High Sensitivity 56 *H </=54 ng/L Lactic Acid Level 1.7 0.4-2.0 mmol/L Magnesium Level 2.0 1.6-2.6 mg/dL Total Bilirubin 0.5 0.2-1.0 mg/dL Aspartate Amino Transferase (AST) 30 13-40 U/L Alanine Aminotransferase (ALT) 11 7-40 U/L Alkaline Phosphatase 88 46-116 U/L B-Type Natriuretic Peptide 581.60 0-100 pg/mL Total Protein 5.3 L 5.7-8.2 g/dL Albumin 3.0 L 3.2-4.8 g/dL Blood Gas Specimen Type Arterial Blood Gas Sample Site Right radial Blood Gas Patient Temperature 37.0 Arterial Blood Date Drawn [id number] Arterial Blood pH 7.465 H 7.350-7.450 Arterial Blood Partial Pressure CO2 34.1 L 35.0-48.0 mmHg Arterial Blood Partial Pressure O2 88.3 83.0-108.0 mmHg Arterial Blood HCO3 24.0 21.0-28.0 mmol/L Arterial Blood Oxygen Saturation 97.3 94.0-98.0 % Arterial Blood Base Excess 0.7 -2.0-3.0 mmol/L Arterial Blood Oxyhemoglobin 96.0 94.0-98.0 % Arterial Blood Carboxyhemoglobin 0.7 0.5-1.5 % Arterial Blood Methemoglobin 0.6 0.0-1.5 % Jeison Test Yes Blood Gas Total Hemoglobin 12.10 L 13.5-17.5 g/dL Blood Gas Liter Flow 6.00 Blood Gas Modality Nasal cannula FiO2 % 44.0 Microbiology Date/Time Source Procedure Growth Status 09/18/24 18:56 Nose MRSA Screen - Final Complete 09/18/24 09:40 Blood Blood Culture - Preliminary NO GROWTH AFTER 24 HOURS OF INCUBATION. Resulted Assessment Paroxysmal atrial fibrillation, stage 3A (off NOAC therapy). Bilateral pleural effusions. NSTEMI type II secondary to above. Rule out structural heart disease. Hypertension. Hyperlipidemia. Acute on chronic anemia. Prostate cancer. COPD. Stage IV lung cancer. History of tobacco use. Morbid obesity. Plan/Recommendation I agree with your ongoing assessment and care of plan. Patient has been seen by Mckayla Kenney NP on my behalf. We have discussed the plan with the patient. Echocardiogram to evaluate cardiac function. Diuresis as tolerated. ?[id number] VASc score:3 points, HAS-BLED: 1 point. Beta-denisse for rate control. Consider NOAC therapy with stable hemoglobin and negative stool occult blood. SCD's in the meantime. Hold off on antiarrhythmic agent, amiodarone given pulmonary disease. Monitor and replete electrolytes as needed, keep K>4 and Mag>2. Check TSH. Additional plan as per the hospital course. Plan discussed with: Patient Date of Service: Sep 19, 2024 Billing Provider: LESLIE MARTINEZ MD Cardiology Common Codes: 05857-IPMGWOT INP/OBS CARE (High) Cardiology Consultation Codes: [id number] CONSULT <45MIN LESLIE MARTINEZ MD Sep 19, 2024 21:31
--- NOTE | 2024-09-19 21:33 | DVHINCON2 ---
Date of service: Sep 19, 2024 Referring Physician Kel Douglas MD Reason for Consultation Acute hypoxic respiratory failure, COPD exacerbation, pleural effusions History of Present Illness An 83-year-old man with past medical history of paroxysmal atrial fibrillation (not on anticoagulation), hypertension, hyperlipidemia, anemia, prostate cancer, stage IV lung cancer, and obesity, following with [facility] for treatment management, presented to the ED on 09/18/24 for acute shortness of breath. Patient was discharged home from [facility] on 09/17/24 but was only home for a day and had severe trouble breathing. The patient is currently undergoing chemotherapy for cancer. He was evaluated in the ED for acute respiratory distress and admitted for further care as he was too unstable for transfer to [facility] per ED. Pulmonary consultation is requested for evaluation and management due to acute hypoxic respiratory failure, COPD exacerbation, and pleural effusions. Review of Systems: 14-point review of systems negative unless otherwise noted above. Past Medical History: Paroxysmal atrial fibrillation (not on anticoagulation), hypertension, hyperlipidemia, anemia, prostate cancer, stage IV lung cancer, and obesity Past Surgical History: None. Medications: Reviewed. Allergies: No known drug allergies. Family History: No family history of premature CAD. No family history of lung disorders. Social History: Ex-smoker. 30 pack-year history, quit smoking approximately 40 years ago No alcohol or illicit drug use. Family History: Patient reports no known family medical history. Allergies: Coded Allergies: NO KNOWN ALLERGIES (Unverified , 11/15/22) Home Meds Reported Medications Prednisone (Prednisone) 5 Mg Tab, 5 MG PO DAILY, TAB 09/18/24 Omeprazole (Gnp Omeprazole) 20 Mg Tab, 1 TAB PO DAILY, #90 TAB 1 Refill 09/18/24 Folic Acid (Folic Acid) 1 Mg Tab, 400 MCG PO DAILY for 30 Days, MG 09/18/24 Atorvastatin Calcium (ATORVASTATIN CALCIUM) 10 Mg Tab, 1 TAB PO EOD, #30 TAB 5 Refills 09/18/24 Acetaminophen (Acetaminophen) 500 Mg Tab, 500 MG PO, TAB 09/18/24 Abiraterone Acetate (ZYTIGA) 250 Mg Tab, 250 MG PO, TAB 09/18/24 Losartan Potassium (Losartan Potassium) 50 Mg Tab, 50 MG PO DAILY for 30 Days, MG 09/18/24 Potassium Chloride (Klor-Con M20) 20 Meq Tab, 20 MEQ PO, TAB 09/18/24 Mirtazapine (Remeron) 15 Mg Tab, 1 TAB PO QPM, #30 TAB 1 Refill 09/18/24 Furosemide (Furosemide) 20 Mg Tab, 1 TAB PO DAILY, #90 TAB 1 Refill 09/18/24 Current Medications Current Medications Medications (Trade) Dose Ordered Sig/Nando Route PRN Reason Start Time Stop Time Status Last Admin Docusate Sodium (Colace Capsule) 100 mg DAILY PO 09/19/24 10:00 09/19/24 09:07 Carvedilol (Coreg Tablet) 6.25 mg BID PO 09/18/24 22:00 09/19/24 09:07 Losartan Potassium (Cozaar Tablet) 25 mg DAILY PO 09/19/24 10:00 09/19/24 09:06 Folic Acid 1 mg DAILY PO 09/19/24 10:00 09/19/24 09:06 Famotidine (Pepcid Tablet) 20 mg DAILY PO 09/19/24 10:00 09/19/24 09:06 Methylprednisolone Sodium Succinate (Solu Medrol) 40 mg BID IV 09/18/24 22:00 09/19/24 09:05 Azithromycin (Zithromax Tablet) 500 mg DAILY PO 09/19/24 10:00 Hold Furosemide (Lasix Tablet) 20 mg DAILY PO 09/20/24 10:00 09/19/24 18:22 DC Potassium Chloride (Klor-Con Tablet) 20 meq DAILY PO 09/20/24 10:00 Atorvastatin Calcium (Lipitor) 10 mg EOD PO 09/21/24 10:00 Patient Own Medication 400 mcg DAILY PO 09/20/24 10:00 Mirtazapine (Remeron Tablet) 15 mg QPM PO 09/19/24 18:00 09/19/24 18:52 Metoprolol Tartrate (Lopressor) 2.5 mg Q6HPRN PRN IV HEART RATE GREATER THAN 140 09/19/24 16:30 Metoprolol Succinate (Toprol Xl) 25 mg DAILY PO 09/20/24 10:00 09/19/24 18:22 DC Furosemide (Lasix Injection) 40 mg BIDD IV 09/20/24 06:00 Hydralazine HCl (Apresoline Injection) 10 mg Q6HP PRN IV SBP>150 09/19/24 19:15 Vital Signs Vital Signs Date Time Temp Pulse Resp B/P (MAP) Pulse Ox O2 Delivery O2 Flow Rate FiO2 09/19/24 18:00 99 Nasal Cannula* 3 32 09/19/24 17:24 160 144/73 09/19/24 17:00 98.0 20 98.0 Physical Exam Gen.: Patient lying in bed in no apparent distress. On supplemental oxygen. Head: Normocephalic, atraumatic. Eyes: EOMI/PERRLA. Ears: Normal hearing. Normal anatomy. Neck/trachea: Trachea midline, supple. Nose: Normal external anatomy. Mouth: Moist mucous membranes. Chest: Decreased air entry bilaterally. No wheezing or rhonchi. Cardiovascular: Positive S1, positive S2. Regular rate and rhythm. Abdomen: Positive bowel sounds in all 4 quadrants. Soft, non-tender, non- distended. : Deferred. Rectal: Deferred. Skin: Warm, dry. Intact. Extremities: 2+ radial pulses bilaterally. No lower extremity edema. Neuro: Awake, alert, oriented x3. No gross motor or sensory deficits. Cranial nerves II through XII intact. Gait not assessed. Labs/Diagnostic Data Labs Test 09/19/24 05:00 09/18/24 11:39 09/18/24 05:58 09/18/24 04:29 Range/Units White Blood Count 7.5 4.4-10.8 10^3/uL Red Blood Count 3.62 L 4.5-5.90 10^6/uL Hemoglobin 10.8 L 13.5-17.5 g/dL Hematocrit 33.9 L 41.0-53.0 % Mean Corpuscular Volume 93.6 80.0-100.0 fL Mean Corpuscular Hemoglobin 29.9 28.0-32.0 pg Mean Corpuscular Hemoglobin Concent 32.0 32.0-36.0 g/dL Red Cell Distribution Width 16.3 H 11.8-14.3 % Platelet Count 290 140-450 10^3/uL Mean Platelet Volume 9.0 6.9-10.8 fL Neutrophils (%) (Auto) 84.6 H 37.0-80.0 % Lymphocytes (%) (Auto) 10.9 10.0-50.0 % Monocytes (%) (Auto) 4.1 0.0-12.0 % Eosinophils (%) (Auto) 0.1 0.0-7.0 % Basophils (%) (Auto) 0.3 0.0-2.0 % Neutrophils # (Auto) 6.3 1.6-8.6 10 ^3/uL Lymphocytes # (Auto) 0.8 0.4-5.4 10 ^3/uL Monocytes # (Auto) 0.3 0-1.3 10 ^3/uL Eosinophils # (Auto) 0 0-0.8 10 ^3/uL Basophils # (Auto) 0 0-0.2 10 ^3/uL Nucleated Red Blood Cells 0.3 % Sodium Level 144 136-145 mmol/L Potassium Level 4.0 3.5-5.1 mmol/L Chloride Level 110 H 98-107 mmol/L Carbon Dioxide Level 26 20-31 mmol/L Anion Gap 8 5-15 Blood Urea Nitrogen 22 9-23 mg/dL Creatinine 1.70 H 0.700-1.30 mg/dL Glomerular Filtration Rate Calc 39 >90 mL/min BUN/Creatinine Ratio 12.9 10.0-20.0 Serum Glucose 161 H 74-106 mg/dL Calcium Level 9.1 8.7-10.4 mg/dL Troponin I High Sensitivity 56 *H </=54 ng/L Lactic Acid Level 1.7 0.4-2.0 mmol/L Magnesium Level 2.0 1.6-2.6 mg/dL Total Bilirubin 0.5 0.2-1.0 mg/dL Aspartate Amino Transferase (AST) 30 13-40 U/L Alanine Aminotransferase (ALT) 11 7-40 U/L Alkaline Phosphatase 88 46-116 U/L B-Type Natriuretic Peptide 581.60 0-100 pg/mL Total Protein 5.3 L 5.7-8.2 g/dL Albumin 3.0 L 3.2-4.8 g/dL Blood Gas Specimen Type Arterial Blood Gas Sample Site Right radial Blood Gas Patient Temperature 37.0 Arterial Blood Date Drawn [id number] Arterial Blood pH 7.465 H 7.350-7.450 Arterial Blood Partial Pressure CO2 34.1 L 35.0-48.0 mmHg Arterial Blood Partial Pressure O2 88.3 83.0-108.0 mmHg Arterial Blood HCO3 24.0 21.0-28.0 mmol/L Arterial Blood Oxygen Saturation 97.3 94.0-98.0 % Arterial Blood Base Excess 0.7 -2.0-3.0 mmol/L Arterial Blood Oxyhemoglobin 96.0 94.0-98.0 % Arterial Blood Carboxyhemoglobin 0.7 0.5-1.5 % Arterial Blood Methemoglobin 0.6 0.0-1.5 % Jeison Test Yes Blood Gas Total Hemoglobin 12.10 L 13.5-17.5 g/dL Blood Gas Liter Flow 6.00 Blood Gas Modality Nasal cannula FiO2 % 44.0 Microbiology Date/Time Source Procedure Growth Status 09/18/24 18:56 Nose MRSA Screen - Final Complete 09/18/24 09:40 Blood Blood Culture - Preliminary NO GROWTH AFTER 24 HOURS OF INCUBATION. Resulted Assessment Impression: Acute hypoxic respiratory failure Acute exacerbation of COPD Pleural effusions Atelectasis Elevated troponin. Obesity Plan: Supplemental oxygen Titrate to keep O2 sats above 92%. Antibiotics Blood cultures show no growth x24 hours. IV steroids Incentive spirometry Diurese w/ Lasix as tolerated Monitor renal function. Monitor electrolytes. Supplement as necessary. Monitor ins and outs. Cardiology recommendations appreciated. Wound care. Diet and lifestyle modifications for weight reduction DVT prophylaxis. Prognosis: Poor given patient's multiple co-morbidities. Rest of plan per hospitalist and other consultants. Thank you Dr. Kel Douglas MD, for allowing me to participate in this patient's care. Further recommendations will depend on the patient's clinical course. Please do not hesitate to contact me if you have any questions or concerns. This medical document was created using an electronic medical record system with [employer] dictation system. Although these documentations are being carefully reviewed, there may still be some phonetic and typographical changes. The errors are purely typographical, due to imperfection on the software program, and do not reflect any compromise in the patient's medical care. Plan discussed with: Patient, Other (MD Misael Salamanca) ESPERANZA CARDOSO MD Sep 19, 2024 21:33
[2024-09-20] VITALS (9 sets, daily range): BP systolic 133–166; BP diastolic 76–93; PULSE 97–157; RESP 16–20; TEMP 97.8–98; O2SAT 92–100
[2024-09-20 06:04] LABS: Basophils # (auto) 0 10 ^3/uL (0-0.2); Basophils % (auto) 0.1 % (0.0-2.0); Eosinophils # (auto) 0 10 ^3/uL (0-0.8); Hematocrit 32.8 % (41.0-53.0); Hemoglobin 10.8 g/dL (13.5-17.5); Lymphocytes % (auto) 9.4 % (10.0-50.0); Mean Corpuscular Hgb Conc. 32.8 g/dL (32.0-36.0); Mean Corpuscular Volume 91.4 fL (80.0-100.0); Monocytes # (auto) 0.3 10 ^3/uL (0-1.3); Monocytes % (auto) 2.8 % (0.0-12.0); Neutrophils % (auto) 87.7 % (37.0-80.0); Nucleated Red Blood Cells % 0.1 %; Platelet Count (auto) 347 10^3/uL (140-450); Red Blood Cells 3.59 10^6/uL (4.5-5.90); Red Cell Distribution Width 15.6 % (11.8-14.3); White Blood Cell 10.2 10^3/uL (4.4-10.8)
[2024-09-20] MEDS: FUROSEMIDE 40 MG/4 ML VIAL IV SCH (06:05)
[2024-09-20 06:33] LABS: Alanine Aminotransferase 13 U/L (7-40); Alkaline Phosphatase 87 U/L (46-116); Anion Gap 8 (5-15); Aspartate Aminotransferase 24 U/L (13-40); BUN/Creatinine Ratio 17.9 (10.0-20.0); Calcium 9.2 mg/dL (8.7-10.4); Carbon Dioxide 27 mmol/L (20-31); Chloride 108 mmol/L (98-107); Glucose 145 mg/dL (74-106); LDL Cholesterol 87 mg/dL (< 100); Potassium 4.4 mmol/L (3.5-5.1); Sodium 143 mmol/L (136-145); Triglycerides 109 mg/dL (< 150)
[2024-09-20 06:34] LABS: Albumin 2.7 g/dL (3.2-4.8); Bilirubin, Total 0.3 mg/dL (0.2-1.0); Cholesterol 166 mg/dL (< 200); HDL Cholesterol 56 mg/dL (40-59); Total Protein 4.8 g/dL (5.7-8.2)
[2024-09-20 06:39] LABS: Blood Urea Nitrogen 35 mg/dL (9-23)
[2024-09-20] MEDS: METOPROLOL TARTRATE 1MG/1ML-5ML VIAL IV PRN (08:54)
[2024-09-20] MEDS: POTASSIUM CHL 20 Meq TABLET PO SCH (08:55)
[2024-09-20] MEDS: FOLIC ACID 400 MCG PO SCH (08:55)
--- NOTE | 2024-09-20 09:29 | DVH ---
CHEST RADIOGRAPH Indication: Bilateral pleural effusions Technique: Single frontal view of the chest was obtained Comparison: XY CHEST PORTABLE on DOS: 09/18/24, XY CHEST PORTABLE on DOS: 09/18/24 FINDINGS: IMPRESSION: The cardiomediastinal silhouette is prominent. There are moderate bilateral pleural effusions, right greater than left. Bibasilar patchy airspace opacities, right greater than left. Moderate pulmonary vascular congestion. No evidence of pneumothorax.
[2024-09-20] MEDS ORDERED: METOPROLOL SUCCINATE XL 50 MG TAB PO SCH (10:00)
[2024-09-20] MEDS ORDERED: FUROSEMIDE 20 MG TAB PO SCH (10:00)
--- NOTE | 2024-09-20 10:40 | DVHPN2 ---
Consult Progress Note Date Seen: Sep 20, 2024 Subjective Review of Systems: CVS:Normal, RESPIRATORY:Abnormal, NEURO:Normal Other Systems: C/o mild SOB Objective vital signs Vital Sign Date Time Temp Pulse Resp B/P (MAP) Pulse Ox O2 Delivery O2 Flow Rate FiO2 09/20/24 09:00 97.9 152 20 148/85 (106) 100 97.9 09/20/24 08:00 Nasal Cannula* 3 32 Total Intake and Output 09/19/24 09/19/24 09/20/24 15:00 23:00 07:00 Intake Total 50 ml 240 ml 650 ml Output Total 600 ml Balance 50 ml -360 ml 650 ml medications Current Medications Medications Dose Ordered Sig/Nando Route Start Time Stop Time Status Last Admin Dose Admin Acetaminophen 650 mg Q6HP PRN PO 09/18/24 10:15 Docusate Sodium 100 mg DAILY PO 09/19/24 10:00 09/20/24 08:54 100 MG Ondansetron HCl 4 mg Q4HP PRN IV 09/18/24 10:15 Carvedilol 6.25 mg BID PO 09/18/24 22:00 09/19/24 22:12 6.25 MG Losartan Potassium 25 mg DAILY PO 09/19/24 10:00 09/20/24 08:58 25 MG Folic Acid 1 mg DAILY PO 09/19/24 10:00 09/20/24 08:49 1 MG Famotidine 20 mg DAILY PO 09/19/24 10:00 09/20/24 08:57 20 MG Methylprednisolone Sodium Succinate 40 mg BID IV 09/18/24 22:00 09/19/24 22:03 40 MG Ceftriaxone Sodium 50 ml @ 100 mls/hr DAILY IV 09/18/24 10:30 09/20/24 08:49 100 MLS/HR Azithromycin 500 mg DAILY PO 09/19/24 10:00 Hold Albuterol 2.5 mg Q4HWA PRN NEB 09/18/24 10:30 09/19/24 21:18 2.5 MG Ipratropium [place] 0.5 mg Q4HWA PRN NEB 09/18/24 10:30 09/19/24 21:18 0.5 MG Nitroglycerin 0.4 mg Q5MINP PRN SL 09/18/24 10:30 Morphine Sulfate 2 mg Q30M PRN IV 09/18/24 10:30 Potassium Chloride 20 meq DAILY PO 09/20/24 10:00 Atorvastatin Calcium 10 mg EOD PO 09/21/24 10:00 Patient Own Medication 400 mcg DAILY PO 09/20/24 10:00 Mirtazapine 15 mg QPM PO 09/19/24 18:00 09/19/24 18:52 15 MG Metoprolol Tartrate 2.5 mg Q6HPRN PRN IV 09/19/24 16:30 09/20/24 08:54 2.5 MG Furosemide 40 mg BIDD IV 09/20/24 06:00 09/20/24 06:05 40 MG Hydralazine HCl 10 mg Q6HP PRN IV 09/19/24 19:15 Examination: GENERAL:Abnormal, LUNGS:Abnormal (Diminished bilaterally), CVS:Abnormal (Pedal edema ++, a-fib with RVR 110s bpm), NEURO:Abnormal (Unable to carry lucid conversation) laboratory and microbiology Laboratory Tests 09/20/24 04:28 Test 09/20/24 04:28 Range/Units Serum Glucose 145 H 74-106 mg/dL Problem List/Assessment/Plan Problem List/Assessment/Plan Paroxysmal atrial fibrillation, stage 3A (off NOAC therapy) Bilateral pleural effusions NSTEMI type II secondary to above Rule out structural heart disease Hypertension Hyperlipidemia Acute on chronic anemia with hx blood transfusions, latest 3 weeks ago Prostate cancer/lung cancer stage IV on chemotherapy and recent hx of radiation COPD with history of tobacco use, off O2 at home Morbid obesity Dementia Plan/Recommendation (Dr. Kim) * Echocardiogram to evaluate cardiac function * Rate control, beta-denisse up-titrate as tolerated * Preload and afterload reduction. Diuresis as tolerated * Hold NOAC/AC therapy given recent Hx of blood transfusion * [id number] VASc score:3 points, HAS-BLED: 1 point * Antiarrhythmic therapy, initiate Flecainide with optimal LVEF * Monitor and replete electrolytes as needed, keep K>4 and Mag>2 * DVT/VTE prophylaxis: SCDs * Radiology consultation: thoracentesis Thank you for allowing us to care for this patient. Please call with any questions or concerns. This medical document was created using an electronic medical record system with voice recognition software and computerized dictation system. Although this document has been carefully reviewed, there might still be some phonetic and typographical errors. Occasional wrong-word or ``sound-alike substitutions may have occurred due to the inherent limitations of voice recognition software. These areas are purely typographical due to imperfections of the software programs and do not reflect any compromise in the patient's medical care. Please read the chart carefully and recognize, using context, where these substitutions have occurred. Plan discussed with: Patient, Other ([id number]) Date of Service: Sep 20, 2024 Billing Provider: ROSEMARY LOPEZ MD Cardiology Common Codes: [id number] [facility] Sep 20, 2024 10:40
--- NOTE | 2024-09-20 11:15 | DVHPN2 ---
Eyes: No Pain, No Vision change, No Conjunctivae inflammation, No Eyelid inflammation, No Other, No Redness ENT: No Ear pain, No Ear discharge, No Nose pain, No Nose discharge, No Nose congestion, No Mouth pain, No Mouth swelling, No Throat pain, No Throat swelling, No Other Cardiovascular: No Chest Pain; Palpitations; No Orthopnea, No Paroxysmal Noc. Dyspnea, No Edema, No Lt Headedness, No Other Respiratory: Cough; No Dry; Shortness of breath; No SOB with excertion, No Wheezing, No Hemoptysis, No Pleuritic Pain, No Sputum, No Other Gastrointestinal: No Nausea, No Vomiting, No Abdominal Pain, No Diarrhea, No Constipation, No Melena, No Hematochezia, No Other Genitourinary: No Dysuria, No Frequency, No Incontinence, No Hematuria, No Retention, No Other Musculoskeletal: No other, No neck pain, No shoulder pain, No arm pain, No back pain, No hand pain, No leg pain, No foot pain Skin: No Rash, No Lesions, No Jaundice, No Bruising, No Other Objective Vitals Vital Signs Date Time Temp Pulse Resp B/P (MAP) Pulse Ox O2 Delivery O2 Flow Rate FiO2 09/20/24 10:00 110 132/65 09/20/24 09:00 97.9 20 100 97.9 09/20/24 08:00 Nasal Cannula* 3 32 Intake/Output Intake and Output 09/20/24 07:00 Intake Total 940 ml Output Total 600 ml Balance 340 ml Intake Oral 890 ml IV Total 50 ml Output Urine Total 600 ml # Voids 2 Medications Current Medications Medications Dose Ordered Sig/Nando Route Start Time Stop Time Status Last Admin Dose Admin Acetaminophen 650 mg Q6HP PRN PO 09/18/24 10:15 Docusate Sodium 100 mg DAILY PO 09/19/24 10:00 09/20/24 08:54 100 MG Ondansetron HCl 4 mg Q4HP PRN IV 09/18/24 10:15 Carvedilol 6.25 mg BID PO 09/18/24 22:00 09/20/24 10:00 6.25 MG Folic Acid 1 mg DAILY PO 09/19/24 10:00 09/20/24 08:49 1 MG Famotidine 20 mg DAILY PO 09/19/24 10:00 09/20/24 08:57 20 MG Methylprednisolone Sodium Succinate 40 mg BID IV 09/18/24 22:00 09/20/24 10:00 40 MG Ceftriaxone Sodium 50 ml @ 100 mls/hr DAILY IV 09/18/24 10:30 09/20/24 08:49 100 MLS/HR Azithromycin 500 mg DAILY PO 09/19/24 10:00 Hold Albuterol 2.5 mg Q4HWA PRN NEB 09/18/24 10:30 09/19/24 21:18 2.5 MG Ipratropium [place] 0.5 mg Q4HWA PRN NEB 09/18/24 10:30 09/19/24 21:18 0.5 MG Nitroglycerin 0.4 mg Q5MINP PRN SL 09/18/24 10:30 Morphine Sulfate 2 mg Q30M PRN IV 09/18/24 10:30 Atorvastatin Calcium 10 mg EOD PO 09/21/24 10:00 Patient Own Medication 400 mcg DAILY PO 09/20/24 10:00 Mirtazapine 15 mg QPM PO 09/19/24 18:00 09/19/24 18:52 15 MG Furosemide 40 mg BIDD IV 09/20/24 06:00 09/20/24 06:05 40 MG Hydralazine HCl 10 mg Q6HP PRN IV 09/19/24 19:15 Laboratory Results Laboratory Tests 09/20/24 04:28 Chemistry Test 09/20/24 04:28 Albumin 2.7 g/dL (3.2-4.8) L Calcium Level 9.2 mg/dL (8.7-10.4) Total Protein 4.8 g/dL (5.7-8.2) L Lipid panel Test 09/20/24 04:28 Cholesterol Level 166 mg/dL (< 200) HDL Cholesterol 56 mg/dL (40-59) Triglycerides Level 109 mg/dL (< 150) LFT Test 09/20/24 04:28 Alanine Aminotransferase (ALT) 13 U/L (7-40) Alkaline Phosphatase 87 U/L (46-116) Aspartate Amino Transferase (AST) 24 U/L (13-40) Total Bilirubin 0.3 mg/dL (0.2-1.0) HgA1c, TSH Test 09/20/24 04:28 Hemoglobin A1c 5.6 % A1C (<5.7) Thyroid Stimulating Hormone (TSH) 0.57 uIU/mL (0.55-4.78) Microbiology Microbiology Date/Time Source Procedure Growth Status 09/18/24 18:56 Nose MRSA Screen - Final Complete 09/18/24 09:40 Blood Blood Culture - Preliminary NO GROWTH AFTER 48 HOURS OF INCUBATION. Resulted Assessment/Plan My Orders Orders - GIL TAVERA MD Procedure Category Date Status Time Atorvastatin (Lipitor) PHA 09/21/24 In Process 10:00 (Nf) Folic Acid PHA 09/20/24 In Process 10:00 Mirtazapine Tablet PHA 09/19/24 In Process (Remeron Tablet) 18:00 Apply Barrier Cream KIMBERLY 09/19/24 In Process 13:34 * Cardiology Consult CONS 09/19/24 Transmitted 15:21 Hydralazine Injection PHA 09/19/24 In Process (Apresoline Inject 19:15 GIL TAVERA MD Sep 20, 2024 11:15
--- NOTE | 2024-09-20 11:16 | DVHDS2 ---
Discharge Summary Date of Admission Sep 18, 2024 at 10:19 Date of Discharge: Sep 20, 2024 Admitting Diagnosis Abdominal pain Paroxysmal atrial fibrillation COPD with exacerbation Non ST elevation CA type 2 Hypertension Hyperlipidemia Anemia of chronic disease Prostate cancer Stage IV lung cancer History of tobacco abuse Acute kidney injury Labs/Diagnostic Data: Laboratory Results Test 09/20/24 04:28 09/18/24 11:39 09/18/24 05:58 09/18/24 04:29 White Blood Count 10.2 10^3/uL (4.4-10.8) Red Blood Count 3.59 10^6/uL (4.5-5.90) Hemoglobin 10.8 g/dL (13.5-17.5) Hematocrit 32.8 % (41.0-53.0) Mean Corpuscular Volume 91.4 fL (80.0-100.0) Mean Corpuscular Hemoglobin 30.0 pg (28.0-32.0) Mean Corpuscular Hemoglobin Concent 32.8 g/dL (32.0-36.0) Red Cell Distribution Width 15.6 % (11.8-14.3) Platelet Count 347 10^3/uL (140-450) Mean Platelet Volume 9.3 fL (6.9-10.8) Neutrophils (%) (Auto) 87.7 % (37.0-80.0) Lymphocytes (%) (Auto) 9.4 % (10.0-50.0) Monocytes (%) (Auto) 2.8 % (0.0-12.0) Eosinophils (%) (Auto) 0.0 % (0.0-7.0) Basophils (%) (Auto) 0.1 % (0.0-2.0) Neutrophils # (Auto) 9.0 10 ^3/uL (1.6-8.6) Lymphocytes # (Auto) 1.0 10 ^3/uL (0.4-5.4) Monocytes # (Auto) 0.3 10 ^3/uL (0-1.3) Eosinophils # (Auto) 0 10 ^3/uL (0-0.8) Basophils # (Auto) 0 10 ^3/uL (0-0.2) Nucleated Red Blood Cells 0.1 % Sodium Level 143 mmol/L (136-145) Potassium Level 4.4 mmol/L (3.5-5.1) Chloride Level 108 mmol/L (98-107) Carbon Dioxide Level 27 mmol/L (20-31) Anion Gap 8 (5-15) Blood Urea Nitrogen 35 mg/dL (9-23) Creatinine 1.96 mg/dL (0.700-1.30) Glomerular Filtration Rate Calc 33 mL/min (>90) BUN/Creatinine Ratio 17.9 (10.0-20.0) Serum Glucose 145 mg/dL (74-106) Hemoglobin A1c 5.6 % A1C (<5.7) Calcium Level 9.2 mg/dL (8.7-10.4) Total Bilirubin 0.3 mg/dL (0.2-1.0) Aspartate Amino Transferase (AST) 24 U/L (13-40) Alanine Aminotransferase (ALT) 13 U/L (7-40) Alkaline Phosphatase 87 U/L (46-116) Total Protein 4.8 g/dL (5.7-8.2) Albumin 2.7 g/dL (3.2-4.8) Triglycerides Level 109 mg/dL (< 150) Cholesterol Level 166 mg/dL (< 200) LDL Cholesterol 87 mg/dL (< 100) HDL Cholesterol 56 mg/dL (40-59) Thyroid Stimulating Hormone (TSH) 0.57 uIU/mL (0.55-4.78) Troponin I High Sensitivity 56 ng/L (</=54) Lactic Acid Level 1.7 mmol/L (0.4-2.0) Magnesium Level 2.0 mg/dL (1.6-2.6) B-Type Natriuretic Peptide 581.60 pg/mL (0-100) Blood Gas Specimen Type Arterial Blood Gas Sample Site Right radial Blood Gas Patient Temperature 37.0 Arterial Blood Date Drawn [id number] Arterial Blood pH 7.465 (7.350-7.450) Arterial Blood Partial Pressure CO2 34.1 mmHg (35.0-48.0) Arterial Blood Partial Pressure O2 88.3 mmHg (83.0-108.0) Arterial Blood HCO3 24.0 mmol/L (21.0-28.0) Arterial Blood Oxygen Saturation 97.3 % (94.0-98.0) Arterial Blood Base Excess 0.7 mmol/L (-2.0-3.0) Arterial Blood Oxyhemoglobin 96.0 % (94.0-98.0) Arterial Blood Carboxyhemoglobin 0.7 % (0.5-1.5) Arterial Blood Methemoglobin 0.6 % (0.0-1.5) Jeison Test Yes Blood Gas Total Hemoglobin 12.10 g/dL (13.5-17.5) Blood Gas Liter Flow 6.00 Blood Gas Modality Nasal cannula FiO2 % 44.0 Other Laboratory Tests 09/20/24 04:28 Brief Hx & Hospital Course: This is an 83 years old male with past medical history of stage IV lung cancer, prostate cancer, currently receiving chemotherapy at [facility]. The patient apparently was admitted to [facility] for some lung problem. The patient did not know was wrong with him. The patient is poor historian. His family also did not know why he was hospitalization. The patient was discharged from [facility] in 09/17/2024. When he gets home he continuing to have shortness for breath, subjective fever, and chills. The patient come to [facility] Department for further evaluation. The patient need to be admitted for acute respiratory failure, pulmonary effusions, COPD exacerbation , acute kidney injury and also paroxysmal atrial fibrillation with RVR. However [facility] did not have bed available so we unable to transfer the patient to [facility] on the day of admission for continuing of care. [facility] give us permission to admit the patient to our facility. The patient was treated with IV antibiotic Rocephin and Zithromax. The patient was given nebulizer, and Solu-Medrol. The patient was given Lasix 40 mg IV b.i.d.. The patient had paroxysmal atrial fibrillation with RVR. 2D echo showed: Severely reduced left ventricular systolic function estimated ejection fraction of 20%. There is global wall akinesia. Patient has frequent PVCs. Normal right ventricular size and dimension. Normal right ventricular systolic function. Moderately dilated left atrium. Normal-sized right atrium. Normal aortic valve structure and function. There is [id number] mitral valve regurgitation. Normal tricuspid valve structure and function. The pulmonary valve is grossly normal. No pericardial effusion. The patient was put on metoprolol then subsequently switched to Coreg, and also amiodarone drip and subsequently switched to amiodarone 200 mg p.o. b.i.d.. The patient heart rate is controlled. The patient needs further care for his COPD exacerbation, his atrial fibrillation, his acute kidney injury and pleural effusion. I request director case to contact [facility]. The patient will be transferred to [facility] today when bed available. Activity as tolerated. Diet low-salt low-cholesterol diet. Follow up with primary care physician at [facility] per schedule. Physical exam: HEENT: Normocephalic atraumatic pupils equal react to light and accommodation. Extraocular muscles intact, conjunctiva pink, oropharynx moist, no thrush, no exudate. Lymphatic: No lymphadenopathy Cardiovascular exam: S1, S2 was heard. No murmurs, rubs, gallops Lung: Clear on auscultation bilaterally, no wheeze, rale, rhonchi. GI: Abdominal soft, nondistended, nontenderness, positive bowel sounds. Extremity: No crepitus, cyanosis, edema. Pedal pulses present bilateral. Full range of motion. Skin: Normal turgor, no rash. Psych: Alert, oriented x3. Neurology: No focal deficits, cranial nerve II to XII grossly intact. Condition at Discharge: Stable Final Diagnosis/Problems List Abdominal pain Paroxysmal atrial fibrillation COPD with exacerbation Non ST elevation CA type 2 Hypertension Hyperlipidemia Anemia of chronic disease Prostate cancer Stage IV lung cancer History of tobacco abuse Acute kidney injury Discharge Disposition: Acute Care Facility Discharge Instruct/Medications Diet: Cardiac 2g Na,low cholest Activity: No Restrictions, As Tolerated Follow Up/Referral: PCP 1-2 weeks Medications: see medication list Discharge Statement: "Patient was advised to return to the ER or call 911 if any headaches, dizziness, shortness of breath, chest pain, abdominal pain, bleeding, fevers, or worsening of medical condition. Patient was counseled about treatment plan, medications, possible side effects, patientverbalized understanding. All questions were answered to the best of my ability. This discharge took greater then 30 minutes in planning, reviewing documentation, counseling the patient, and discussing with other team members." ASSESSMENT ASSESSMENT Assessment Date of Service: Sep 20, 2024 Billing Provider: GIL TAVERA MD Common Visit Codes: 04065-CDT/OBS DISCH DAY >30min GIL TAVERA MD Sep 20, 2024 11:16
--- NOTE | 2024-09-20 11:36 | DVHSR ---
APPROVED REPORT EXAM: Two-dimensional and M-mode echocardiogram with Doppler and color Doppler. Blood Pressure: 133/85 mmHg INDICATION Evaluate cardiac function RISK FACTORS Height: 5'9", Weight: 224 DIMENSIONS LVDd5.7 (3.8-5.7cm)LA (2D)5.3 (1.9-4.0cm)Aortic Root3.2 (2.0-3.7cm) LVDs5.1 (2.5-4.0cm)LA (MM) (1.9-4.0cm)Aortic Cusp Exc1.5 (1.5-2.0cm) EF (%) 21.0 (55-70%)Rt. Atrium5.1 (1.9-4.0cm)Asc. Aorta cm IVSd0.9 (0.7-1.1cm)RV (D)4.4 (1.8-2.4cm) PWd0.9 (0.7-1.1cm) Mitral Valve MitralMitral Stenosis E/A ratio0.02D MVAcm2 Aortic Valve Aortic ValveAortic Stenosis V11.00m/Edmund Mean GR.8mmHg V21.88m/Edmund Peak GR.14mmHg LVOT Diameter2.2 (1.8-2.4cm)Doppler AVA2.02cm2 Tricuspid Valve TR Velocity3.42m/s [id number] Other Information Quality : Technically LimitedRhythm : Technically limited study due to body habitus. Conclusion Severely reduced left ventricular systolic function estimated ejection fraction of 20%. There is mushtaq bal wall akinesia. Patient has frequent PVCs. Normal right ventricular size and dimension. Normal right ventricular systolic function. Moderately dilated left atrium. Normal-sized right atrium Normal aortic valve structure and function. There is [id number] mitral valve regurgitation. Normal tricuspid valve structure and function. The pulmonary valve is grossly normal. No pericardial effusion.
--- NOTE | 2024-09-20 11:37 | DVH ---
Bilateral Chest Sonogram Date: 09/20/2024 11:08 AM Clinical history: FLUID CHECK FOR POSSIBLE THORACENTESIS Technique: Limited sonographic evaluation of the bilateral chest was performed to evaluate for pleur al effusion. Finding/Impression: There is a small right-sided pleural effusion. The left pleural space is not well-visualized due to o verlying bandaging. HS:Y
--- NOTE | 2024-09-20 13:19 | DVHINCON2 ---
Date of service: Sep 20, 2024 Referring Physician Kati De Leon, nurse practitioner Reason for Consultation Acute kidney injury History of Present Illness Patient is a 83-year-old male with past medical history significant for prostate Cancer, stage IV lung cancer GERD, High Lipids, and HTN is admitted for shortness of breath. Patient was just recently discharged from [facility]. On admission patient found to have elevated BUN creatinine nephrology is consulted for acute kidney injury Past Medical History PAST MEDICAL HISTORY: Prostate and lungs Cancer, GERD, High Lipids, HTN Past Surgical History Unknown Allergies: Coded Allergies: NO KNOWN ALLERGIES (Unverified , 11/15/22) Home Meds Reported Medications Prednisone (Prednisone) 5 Mg Tab, 5 MG PO DAILY, TAB 09/18/24 Omeprazole (Gnp Omeprazole) 20 Mg Tab, 1 TAB PO DAILY, #90 TAB 1 Refill 09/18/24 Folic Acid (Folic Acid) 1 Mg Tab, 400 MCG PO DAILY for 30 Days, MG 09/18/24 Atorvastatin Calcium (ATORVASTATIN CALCIUM) 10 Mg Tab, 1 TAB PO EOD, #30 TAB 5 Refills 09/18/24 Acetaminophen (Acetaminophen) 500 Mg Tab, 500 MG PO, TAB 09/18/24 Abiraterone Acetate (ZYTIGA) 250 Mg Tab, 250 MG PO, TAB 09/18/24 Losartan Potassium (Losartan Potassium) 50 Mg Tab, 50 MG PO DAILY for 30 Days, MG 09/18/24 Potassium Chloride (Klor-Con M20) 20 Meq Tab, 20 MEQ PO, TAB 09/18/24 Mirtazapine (Remeron) 15 Mg Tab, 1 TAB PO QPM, #30 TAB 1 Refill 09/18/24 Furosemide (Furosemide) 20 Mg Tab, 1 TAB PO DAILY, #90 TAB 1 Refill 09/18/24 Current Medications Current Medications Medications (Trade) Dose Ordered Sig/Nando Route PRN Reason Start Time Stop Time Status Last Admin Furosemide (Lasix Tablet) 20 mg DAILY PO 09/20/24 10:00 09/19/24 18:22 DC Potassium Chloride (Klor-Con Tablet) 20 meq DAILY PO 09/20/24 10:00 09/20/24 10:37 DC Atorvastatin Calcium (Lipitor) 10 mg EOD PO 09/21/24 10:00 Patient Own Medication 400 mcg DAILY PO 09/20/24 10:00 Mirtazapine (Remeron Tablet) 15 mg QPM PO 09/19/24 18:00 09/19/24 18:52 Metoprolol Tartrate (Lopressor) 2.5 mg Q6HPRN PRN IV HEART RATE GREATER THAN 140 09/19/24 16:30 09/20/24 10:37 DC 09/20/24 08:54 Metoprolol Succinate (Toprol Xl) 25 mg DAILY PO 09/20/24 10:00 09/19/24 18:22 DC Furosemide (Lasix Injection) 40 mg BIDD IV 09/20/24 06:00 09/20/24 06:05 Hydralazine HCl (Apresoline Injection) 10 mg Q6HP PRN IV SBP>150 09/19/24 19:15 Family History: Patient reports no known family medical history. Review of Systems All 12 item review of systems reviewed with the patient nonsignificant except what is mentioned in the history of present illness H&P Exam Vital Signs/I&O Vital Sign Date Time Temp Pulse Resp B/P (MAP) Pulse Ox O2 Delivery O2 Flow Rate FiO2 09/20/24 12:02 98.0 114 20 154/93 (113) 100 98.0 09/20/24 10:00 Nasal Cannula* 3 32 Intake and Output 09/19/24 09/20/24 19:00 07:00 Intake Total 290 ml 650 ml Output Total 600 ml Balance -310 ml 650 ml Intake Oral 240 ml 650 ml IV Total 50 ml Output Urine Total 600 ml # Voids 2 Physical Exam Obese male in moderate respiratory distress O2 nasal cannula Decreased breath sound left lower lungs Cardiac exam tachycardia GI soft nontender normal Extremities no clubbing cyanosis or edema Neuro nonfocal Labs/Diagnostic Data Labs/Diagnostic Data Laboratory Tests Test 09/20/24 04:28 09/19/24 05:00 09/18/24 11:39 09/18/24 09:40 Range/Units White Blood Count 10.2 # 7.5 4.4-10.8 10^3/uL Red Blood Count 3.59 L 3.62 L 4.5-5.90 10^6/uL Hemoglobin 10.8 L 10.8 L 13.5-17.5 g/dL Hematocrit 32.8 L 33.9 L 41.0-53.0 % Mean Corpuscular Volume 91.4 93.6 80.0-100.0 fL Mean Corpuscular Hemoglobin 30.0 29.9 28.0-32.0 pg Mean Corpuscular Hemoglobin Concent 32.8 32.0 32.0-36.0 g/dL Red Cell Distribution Width 15.6 H 16.3 H 11.8-14.3 % Platelet Count 347 290 140-450 10^3/uL Mean Platelet Volume 9.3 9.0 6.9-10.8 fL Neutrophils (%) (Auto) 87.7 H 84.6 H 37.0-80.0 % Lymphocytes (%) (Auto) 9.4 L 10.9 10.0-50.0 % Monocytes (%) (Auto) 2.8 4.1 0.0-12.0 % Eosinophils (%) (Auto) 0.0 0.1 0.0-7.0 % Basophils (%) (Auto) 0.1 0.3 0.0-2.0 % Neutrophils # (Auto) 9.0 H 6.3 1.6-8.6 10 ^3/uL Lymphocytes # (Auto) 1.0 0.8 0.4-5.4 10 ^3/uL Monocytes # (Auto) 0.3 0.3 0-1.3 10 ^3/uL Eosinophils # (Auto) 0 0 0-0.8 10 ^3/uL Basophils # (Auto) 0 0 0-0.2 10 ^3/uL Nucleated Red Blood Cells 0.1 0.3 % Sodium Level 143 144 136-145 mmol/L Potassium Level 4.4 4.0 3.5-5.1 mmol/L Chloride Level 108 H 110 H 98-107 mmol/L Carbon Dioxide Level 27 26 20-31 mmol/L Anion Gap 8 8 5-15 Blood Urea Nitrogen 35 #H 22 9-23 mg/dL Creatinine 1.96 H 1.70 H 0.700-1.30 mg/dL Glomerular Filtration Rate Calc 33 39 >90 mL/min BUN/Creatinine Ratio 17.9 12.9 10.0-20.0 Serum Glucose 145 H 161 H 74-106 mg/dL Hemoglobin A1c 5.6 <5.7 % A1C Calcium Level 9.2 9.1 8.7-10.4 mg/dL Total Bilirubin 0.3 0.2-1.0 mg/dL Aspartate Amino Transferase (AST) 24 13-40 U/L Alanine Aminotransferase (ALT) 13 7-40 U/L Alkaline Phosphatase 87 46-116 U/L Total Protein 4.8 L 5.7-8.2 g/dL Albumin 2.7 L 3.2-4.8 g/dL Triglycerides Level 109 < 150 mg/dL Cholesterol Level 166 < 200 mg/dL LDL Cholesterol 87 < 100 mg/dL HDL Cholesterol 56 40-59 mg/dL Thyroid Stimulating Hormone (TSH) 0.57 0.55-4.78 uIU/mL Troponin I High Sensitivity 56 *H 58 *H </=54 ng/L Test 09/18/24 05:58 09/18/24 04:29 Range/Units White Blood Count 9.8 4.4-10.8 10^3/uL Red Blood Count 3.94 L 4.5-5.90 10^6/uL Hemoglobin 12.1 L 13.5-17.5 g/dL Hematocrit 36.5 L 41.0-53.0 % Mean Corpuscular Volume 92.7 80.0-100.0 fL Mean Corpuscular Hemoglobin 30.7 28.0-32.0 pg Mean Corpuscular Hemoglobin Concent 33.2 32.0-36.0 g/dL Red Cell Distribution Width 16.2 H 11.8-14.3 % Platelet Count 244 140-450 10^3/uL Mean Platelet Volume 8.6 6.9-10.8 fL Neutrophils (%) (Auto) 74.3 37.0-80.0 % Lymphocytes (%) (Auto) 18.0 10.0-50.0 % Monocytes (%) (Auto) 6.1 0.0-12.0 % Eosinophils (%) (Auto) 0.9 0.0-7.0 % Basophils (%) (Auto) 0.7 0.0-2.0 % Neutrophils # (Auto) 7.2 1.6-8.6 10 ^3/uL Lymphocytes # (Auto) 1.8 0.4-5.4 10 ^3/uL Monocytes # (Auto) 0.6 0-1.3 10 ^3/uL Eosinophils # (Auto) 0.1 0-0.8 10 ^3/uL Basophils # (Auto) 0.1 0-0.2 10 ^3/uL Nucleated Red Blood Cells 0.1 % Sodium Level 147 H 136-145 mmol/L Potassium Level 3.3 L 3.5-5.1 mmol/L Chloride Level 113 H 98-107 mmol/L Carbon Dioxide Level 24 20-31 mmol/L Anion Gap 10 5-15 Blood Urea Nitrogen 17 9-23 mg/dL Creatinine 1.56 H 0.700-1.30 mg/dL Glomerular Filtration Rate Calc 44 >90 mL/min BUN/Creatinine Ratio 10.9 10.0-20.0 Serum Glucose 129 H 74-106 mg/dL Lactic Acid Level 1.7 0.4-2.0 mmol/L Calcium Level 9.2 8.7-10.4 mg/dL Magnesium Level 2.0 1.6-2.6 mg/dL Total Bilirubin 0.5 0.2-1.0 mg/dL Aspartate Amino Transferase (AST) 30 13-40 U/L Alanine Aminotransferase (ALT) 11 7-40 U/L Alkaline Phosphatase 88 46-116 U/L Troponin I High Sensitivity 63 *H </=54 ng/L B-Type Natriuretic Peptide 581.60 0-100 pg/mL Total Protein 5.3 L 5.7-8.2 g/dL Albumin 3.0 L 3.2-4.8 g/dL Blood Gas Specimen Type Arterial Blood Gas Sample Site Right radial Blood Gas Patient Temperature 37.0 Arterial Blood Date Drawn [id number] Arterial Blood pH 7.465 H 7.350-7.450 Arterial Blood Partial Pressure CO2 34.1 L 35.0-48.0 mmHg Arterial Blood Partial Pressure O2 88.3 83.0-108.0 mmHg Arterial Blood HCO3 24.0 21.0-28.0 mmol/L Arterial Blood Oxygen Saturation 97.3 94.0-98.0 % Arterial Blood Base Excess 0.7 -2.0-3.0 mmol/L Arterial Blood Oxyhemoglobin 96.0 94.0-98.0 % Arterial Blood Carboxyhemoglobin 0.7 0.5-1.5 % Arterial Blood Methemoglobin 0.6 0.0-1.5 % Jeison Test Yes Blood Gas Total Hemoglobin 12.10 L 13.5-17.5 g/dL Blood Gas Liter Flow 6.00 Blood Gas Modality Nasal cannula FiO2 % 44.0 Microbiology Date/Time Source Procedure Growth Status 09/18/24 18:56 Nose MRSA Screen - Final Complete Assessment Acute kidney injury superimposed Chronic Kidney Disease secondary hemodynamic mediated Acute hypoxic respiratory failure Lungs cancer Prostate cancer AFib with RVR Hypertension Anemia of chronic kidney disease Recommendations Closely monitor fluid and electrolytes Avoid nephrotoxic medications Curtis catheter Strict I&Os I agree with diuresis Check urinalysis urine electrolytes and urine protein excretion Check kidney ultrasound Oncology consult We will continue to follow Patient seen and examined by myself. I discussed my plan of care with the patient and primary nurse at the bedside I would like to thank Kati for the consult, will follow Plan discussed with: Patient DOROTEO PARK MD Sep 20, 2024 13:19
--- NOTE | 2024-09-20 13:54 | DVH ---
Renal ultrasound HISTORY: yeyo TECHNIQUE: 2 D ultrasound was performed with transaxial and longitudinal images. FINDINGS: Right kidney measures 10.2 and left kidney not seen. No renal masses, stones or hydronephr osis. Urinary bladder unremarkable. IMPRESSION: 1. Right kidney appears normal. Left kidney is not seen due to overlying bandage. Bladder is distended but patient is unable to void at this time
[2024-09-20 14:17] LABS: Magnesium 1.9 mg/dL (1.6-2.6)
[2024-09-20 14:19] LABS: Phosphorus 3.8 mg/dL (2.4-5.1)
[2024-09-20] MEDS ORDERED: AMIODARONE HCL 200 MG TAB PO ONE (15:00)
[2024-09-20] MEDS: AMIODARONE BOLUS KIT 100 ML IV ONE (17:02)
[2024-09-20 17:07] LABS: Urine Amorphous Crystal FEW /hpf (None Seen); Urine Bacteria FEW /hpf (None Seen); Urine Blood 2+ /uL (Negative); Urine Clarity Turbid (Clear); Urine Color Yellow (Yellow); Urine Hyaline Cast FEW /lpf (0 - 2); Urine Mucus FEW (None Seen); Urine Protein, UAD 1+ (Negative); Urine Specific Gravity 1.016 (1.001-1.035); Urine Urobilinogen Normal (Negative); Urine WBC 3 /hpf (0 - 3)
[2024-09-20 17:12] LABS: Sodium Urine < 10 mmol/L (40-220)
[2024-09-20] MEDS: AMIODARONE 450mg/250ml AE 250 ML IV SCH (17:17)
[2024-09-20 17:18] LABS: Protein, Urine 184.5 mg/dL (1-14)
[2024-09-20] MEDS: MAGNESIUM SULFATE 1GM/100ML 100 ML IV ONE (18:33)
--- NOTE | 2024-09-20 20:58 | DVHPN2 ---
Progress Note - Dictate Date Seen: Sep 20, 2024 Medical Necessity Reason Pt with a Central, PICC or Fol: No Subjective Patient seen and examined at bedside. Remains on supplemental oxygen Overnight events reviewed. vital signs Vital Sign Date Time Temp Pulse Resp B/P (MAP) Pulse Ox O2 Delivery O2 Flow Rate FiO2 09/20/24 18:32 135/74 09/20/24 12:02 98.0 114 20 100 98.0 09/20/24 10:00 Nasal Cannula* 3 32 Total Intake and Output 09/19/24 09/19/24 09/20/24 15:00 23:00 07:00 Intake Total 50 ml 240 ml 650 ml Output Total 600 ml Balance 50 ml -360 ml 650 ml medications Current Medications Medications Dose Ordered Sig/Nando Route Start Time Stop Time Status Last Admin Dose Admin Acetaminophen 650 mg Q6HP PRN PO 09/18/24 10:15 Docusate Sodium 100 mg DAILY PO 09/19/24 10:00 09/20/24 08:54 100 MG Ondansetron HCl 4 mg Q4HP PRN IV 09/18/24 10:15 Folic Acid 1 mg DAILY PO 09/19/24 10:00 09/20/24 08:49 1 MG Famotidine 20 mg DAILY PO 09/19/24 10:00 09/20/24 08:57 20 MG Methylprednisolone Sodium Succinate 40 mg BID IV 09/18/24 22:00 09/20/24 10:00 40 MG Ceftriaxone Sodium 50 ml @ 100 mls/hr DAILY IV 09/18/24 10:30 09/20/24 08:49 100 MLS/HR Azithromycin 500 mg DAILY PO 09/19/24 10:00 Hold Albuterol 2.5 mg Q4HWA PRN NEB 09/18/24 10:30 09/19/24 21:18 2.5 MG Ipratropium [place] 0.5 mg Q4HWA PRN NEB 09/18/24 10:30 09/19/24 21:18 0.5 MG Nitroglycerin 0.4 mg Q5MINP PRN SL 09/18/24 10:30 Morphine Sulfate 2 mg Q30M PRN IV 09/18/24 10:30 Atorvastatin Calcium 10 mg EOD PO 09/21/24 10:00 Patient Own Medication 400 mcg DAILY PO 09/20/24 10:00 Mirtazapine 15 mg QPM PO 09/19/24 18:00 09/20/24 18:33 15 MG Furosemide 40 mg BIDD IV 09/20/24 06:00 09/20/24 18:32 40 MG Hydralazine HCl 10 mg Q6HP PRN IV 09/19/24 19:15 Amiodarone HCl 250 ml @ 33.333 mls/ hr Q7H30M IV 09/20/24 15:30 09/20/24 21:29 09/20/24 17:17 33.333 MLS/HR Amiodarone HCl 250 ml @ 16.667 mls/ hr Q15H IV 09/20/24 21:30 Carvedilol 12.5 mg BID PO 09/20/24 22:00 objective Gen.: Patient lying in bed in no apparent distress. On supplemental oxygen. Head: Normocephalic, atraumatic. Eyes: EOMI/PERRLA. Ears: Normal hearing. Normal anatomy. Neck/trachea: Trachea midline, supple. Nose: Normal external anatomy. Mouth: Moist mucous membranes. Chest: Decreased air entry bilaterally. No wheezing or rhonchi. Cardiovascular: Positive S1, positive S2. Regular rate and rhythm. Abdomen: Positive bowel sounds in all 4 quadrants. Soft, non-tender, non- distended. : Deferred. Rectal: Deferred. Skin: Warm, dry. Intact. Extremities: 2+ radial pulses bilaterally. No lower extremity edema. Neuro: Awake, alert, oriented x3. No gross motor or sensory deficits. Cranial nerves II through XII intact. Gait not assessed. laboratory and microbiology Laboratory Tests 09/20/24 04:28 Test 09/20/24 04:28 Range/Units Serum Glucose 145 H 74-106 mg/dL Assessment/Plan Impression: Acute hypoxic respiratory failure Acute exacerbation of COPD Pleural effusions Atelectasis Elevated troponin. Obesity Events: Remains on supplemental oxygen, 3 LPM NC Taper O2 as tolerated Continue bronchodilators Continue IV steroids Continue antibiotics Incentive spirometry Patient is stable from the pulmonary standpoint for transfer to [place]. Labs and imaging reviewed. Rest of plan as noted below. Plan: Supplemental oxygen Titrate to keep O2 sats above 92%. Antibiotics Blood cultures show no growth x48 hours. IV steroids Incentive spirometry Diurese w/ Lasix as tolerated Monitor renal function. Monitor electrolytes. Supplement as necessary. Monitor ins and outs. Cardiology recommendations appreciated. Wound care. Diet and lifestyle modifications for weight reduction DVT prophylaxis. Prognosis: Poor given patient's multiple co-morbidities. Rest of plan per hospitalist and other consultants. Thank you Dr. Kel Douglas MD, for allowing me to participate in this patient's care. Further recommendations will depend on the patient's clinical course. Please do not hesitate to contact me if you have any questions or concerns. This medical document was created using an electronic medical record system with [employer] dictation system. Although these documentations are being carefully reviewed, there may still be some phonetic and typographical changes. The errors are purely typographical, due to imperfection on the software program, and do not reflect any compromise in the patient's medical care. Plan discussed with: Patient, Other (JULIUS Jain) ESPERANZA CARDOSO MD Sep 20, 2024 20:58
[2024-09-20] MEDS ORDERED: AMIODARONE 450mg/250ml AE 250 ML IV SCH (21:30)
[2024-09-20] MEDS ORDERED: CARVEDILOL 3.125 MG TAB PO SCH (22:00)
[2024-09-20] MEDS ORDERED: AMIODARONE HCL 200 MG TAB PO SCH (22:00)
[2024-09-21] MEDS ORDERED: ATORVASTATIN 20 MG TAB PO SCH (10:00)
== END 2024-09-20 21:30 | disposition short-term general hospital (02) | DRG 280 ==
LOC: ER 03:52 → EDBD 03:52 → TELE 10:19 → TELE-CENTR 17:24
PROVIDERS: ADMIT Hospitalist; ATTEND Internal Medicine
DX: I13.0 Hypertensive heart and chronic kidney disease with heart failure and stage 1 through stage 4 chronic kidney disease, or unspecified chronic kidney disease (principal); I50.23 Acute on chronic systolic (congestive) heart failure; I21.A1 Myocardial infarction type 2; J96.01 Acute respiratory failure with hypoxia; J44.1 Chronic obstructive pulmonary disease with (acute) exacerbation; N17.9 Acute kidney failure, unspecified; J98.11 Atelectasis; C34.90 Malignant neoplasm of unspecified part of unspecified bronchus or lung; J90 Pleural effusion, not elsewhere classified; C79.82 Secondary malignant neoplasm of genital organs; E78.5 Hyperlipidemia, unspecified; N18.9 Chronic kidney disease, unspecified; K21.9 Gastro-esophageal reflux disease without esophagitis; I48.0 Paroxysmal atrial fibrillation; E66.01 Morbid (severe) obesity due to excess calories; D63.1 Anemia in chronic kidney disease; I34.0 Nonrheumatic mitral (valve) insufficiency; I49.3 Ventricular premature depolarization; F03.90 Unspecified dementia, unspecified severity, without behavioral disturbance, psychotic disturbance, mood disturbance, and anxiety; Z87.891 Personal history of nicotine dependence; Z68.29 Body mass index [BMI] 29.0-29.9, adult
CPT/HCPCS: 36415; 36600; 71045; 76604; 76775; 80048; 80053; 80061; 81001; 82306; 82570; 82805; 83036; 83605; 83735; 83880; 83970; 84100; 84156; 84300; 84443; 84484; 85025; 87040; 87081; 93005; 93306; 94640; 99291; G0378